=== PATIENT | male | born 1955 | race Caucasian/White ===

== ENCOUNTER 2016-11-01 08:25 | Inpatient (IN) | payer BC, OTHER ==
[~2016-11-01] VITALS: Ht 177.8 cm; Wt 84.8 kg
[~2016-11-01 08:25] MED LIST: NXM/40 PO
[2016-11-01 09:17] LABS: HEMATOCRIT 44.4 % (42-52); MEAN CELL VOLUME 91.2 fL (80-100); MEAN CORPUSCULAR HEMOGLOBIN 31.4 pg (25-34); MEAN CORPUSCULAR HGB CONC 34.5 g/dl (32-36); MEAN PLATELET VOLUME 10.8 fL (7.4-10.4); PLATELET COUNT 201 K/uL (130-400); RED BLOOD COUNT 4.87 M/uL (4.7-6.1); WHITE BLOOD COUNT 6.12 K/uL (4.8-10.8)
[2016-11-01] MEDS ORDERED: ONDANSETRON INJ 2 MG/ML 2 ML VIAL ONE (09:19)
[2016-11-01] MEDS ORDERED: MoRPHine SULFATE 4 MG/ML 1 ML CARP\\VIAL IV STA ×2 (09:24→10:26)
[2016-11-01 09:28] LABS: ALT/SGPT 29 U/L (12-78); BLOOD UREA NITROGEN 17 mg/dl (7-18); BUN/CREATININE RATIO 13.4 (10-20); CARBON DIOXIDE 21 mmol/L (21-32); CHLORIDE 105 mmol/L (98-107); GLUCOSE 117 mg/dl (70-99); POTASSIUM 3.7 mmol/L (3.5-5.1); SODIUM 140 mmol/L (136-145)
[2016-11-01 09:33] LABS: ALB/GLOB RATIO 1.2 (0.9-2); ALKALINE PHOSPHATASE 69 U/L (45-117); AST/SGOT 24 U/L (15-37)
[2016-11-01 09:42] LABS: INR 0.9 (0.9-1.1); PARTIAL THROMBOPLASTIN RATIO 1.1; PROTHROMBIN TIME (PATIENT) 10.1 SECONDS (9.0-12.0)
[2016-11-01] MEDS ORDERED: NURSING VERBAL MED ORDER ONE (09:45)
[2016-11-01] MEDS ORDERED: ONDANSETRON INJ 2 MG/ML 2 ML VIAL IV STA (10:26)
--- NOTE | 2016-11-01 10:26 | DIAGNOSTIC IMAGING REPORT ---
PA CHEST RADIOGRAPH AND UPRIGHT AND SUPINE AP RADIOGRAPHS OF THE ABDOMEN CLINICAL HISTORY: Epigastric pain. COMPARISON STUDY: Chest radiograph abdominal series July 30, 2015. FINDINGS: Lung volumes are normal. Lungs are clear. There is no pneumothorax or pleural effusion. Cardiac size is normal. There is a moderate sized hiatal hernia. There is no free air. The bowel gas pattern is normal. Pelvic calcifications likely reflect phleboliths. Postsurgical findings within the proximal left humerus are noted. IMPRESSION: 1. No free air or evidence of bowel obstruction. 2. Moderate sized hiatal hernia. 3. No acute cardiopulmonary findings. Electronically signed by: Scot Childress M.D. 11/01/2016 10:25 AM Dictated Date/Time: 11/01/2016 10:22 AM
[2016-11-01] MEDS ORDERED: RANITIDINE HCL 50 MG/100 ML D5W IV STA (10:32)
[2016-11-01] MEDS ORDERED: OPTIRAY 320 IV PRN (11:15)
--- NOTE | 2016-11-01 11:35 | DIAGNOSTIC IMAGING REPORT ---
CT ABD/PELVIS IV CONTRAST ONLY CLINICAL HISTORY: Epigastric pain, nausea, vomiting. COMPARISON STUDY: None. TECHNIQUE: Following the IV administration of 116 mL of Optiray-320, CT scan of the abdomen and pelvis was performed from the lung bases to the proximal femurs. Images are reviewed in the axial, sagittal, and coronal planes. IV contrast was administered without complication. CT DOSE: 844.18 mGycm FINDINGS: Lower chest: There is bibasal atelectasis. There is a large hiatal hernia. Liver: The contrast-enhanced liver is normal in size, contour, and attenuation. There is no intrahepatic biliary ductal dilatation. The hepatic veins and portal veins are patent. Gallbladder: Mildly distended. No calculi are visualized. Spleen: Normal in size and attenuation. Pancreas: Unremarkable. Adrenal glands: Unremarkable. Kidneys: There is symmetric renal cortical enhancement. The kidneys are normal in size without hydronephrosis. Bowel: There are no transition zones indicate bowel obstruction. The appendix appears normal. There is colonic diverticulosis. There are no acute peridiverticular inflammatory changes. Peritoneum: There is no intraperitoneal free air or abdominal ascites. There are postsurgical changes of a left inguinal hernia repair. Vasculature: The abdominal aorta is normal in course and caliber. Adenopathy: None. Pelvic viscera: The bladder, and pelvic viscera are unremarkable. Skeletal structures: No destructive osseous lesions are seen. There is dural ectasia within the sacral spine with bony remodeling. IMPRESSION: 1. No evidence of bowel obstruction. No evidence of free air 2. Normal appendix 3. Diverticulosis. No evidence of acute peridiverticular inflammatory change 4. Large hiatal hernia 5. Mild gallbladder distention. No calculi are visualized. Electronically signed by: Jameson Lee M.D. 11/01/2016 11:33 AM Dictated Date/Time: 11/01/2016 11:30 AM
[2016-11-01] MEDS ORDERED: RANITIDINE IV 50 MG in DEXTROSE 5% 100ML 100 ML IV ONE (11:45)
--- NOTE | 2016-11-01 12:28 | EMERGENCY ROOM VISIT NOTE ---
History First contact with patient: 08:41 Chief Complaint: CHEST PAIN Stated Complaint: CHEST PAIN Nursing Triage Summary: Pt c/o chest pain in center of chest since 629, sudden onset. States he took tylenol, zantac and pepto-bismol. Pt c/o some nausea. Pain in center of chest tender to palpation. History of Present Illness Patient is a 61-year-old white male with past medical history significant for Cantor's esophagus and hiatal hernia who presents to the emergency department for evaluation of epigastric pain that started about 3 hours ago. He states that he was watching news and drinking his coffee at the time. He describes it as a steady, dull pain that he would've rated a 5/10. There was some associated numbness in the left arm. The pain subsided slightly on its own, but then worsened. He took Zantac, Pepto-Bismol and Tylenol without relief of his discomfort. He reports associated nausea, dry heaves, dizziness and chills. Since arrival in the emergency department the pain has increased again and he presently rates it a 9/10. He denies any radiation of the pain through to the back. He denies any upper chest pain. No palpitations or shortness of breath. He is actively vomiting during the history. The vomitus was clear and watery without blood. He has a history of Cantor's esophagus and is followed by Dr. Garvin. He has been off of his Nexium for 1-2 years. Review of Systems Review of systems as per HPI. All other systems reviewed were negative. 10 systems reviewed. Past Medical/Surgical History Medical Problems: (1) Cantor esophagus (2) Cantor's esophagus (3) Dyslipidemia (4) GERD (gastroesophageal reflux disease) (5) Hiatal hernia (6) Hiatal hernia (7) History of intestinal obstruction (8) Intractable nausea and vomiting Surgical Problems: (1) H/O inguinal hernia repair (2) History of inguinal hernia repair Electronic medical records are reviewed and summarized as above/below. See Problem List. Family History Diabetes mellitus Social History Smoking Status: Never Smoker Alcohol Use: none Marital Status: Occupation Status: employed Current/Historical Medications No Active Prescriptions or Reported Meds Allergies Coded Allergies: Omeprazole (Verified Adverse Reaction, Unknown, GI SYMPTOMS, 11/01/16) Physical Exam Vital Signs Date Time Temp Pulse Resp B/P Pulse Ox O2 Delivery O2 Flow Rate FiO2 11/01/16 12:45 96 Room Air 11/01/16 12:10 54 11/01/16 11:30 59 13 159/91 96 Room Air 11/01/16 10:22 52 19 170/100 99 Room Air 11/01/16 09:32 61 22 172/97 100 Room Air 11/01/16 09:25 98 Room Air 11/01/16 09:24 98 Room Air 11/01/16 09:24 98 Room Air 11/01/16 08:46 61 11/01/16 08:32 36.4 62 20 166/95 99 Room Air Physical Exam CONSTITUTIONAL: Patient is a diaphoretic, obviously uncomfortable 61-year-old white male who is awake and alert and in moderate distress due to nausea, vomiting and abdominal pain. EYES: Pupils equal, round, reactive to light and accommodation. EOMs intact without nystagmus. Sclera are anicteric. ENT: Tympanic membranes intact, with normal landmarks. External canals are clear. Oral and nasopharynx are clear. Mucous membranes are moist, no lesions , tongue and gums appear normal. NECK: No bruits auscultated. Supple without lymphadenopathy. No thyromegaly. No meningeal signs. Full active range of motion without discomfort. CARDIOVASCULAR: Regular rate and rhythm, with normal S1 and S2, no murmur or gallop or rub is heard. No carotid bruits auscultated. No JVD. Peripheral pulses easy to palpable. RESPIRATORY: Breath sounds equal and clear to auscultation without wheezes, rales, or rhonchi heard. Full and equal chest expansion without accessory muscle use or retractions. GI: Bowel sounds are present. Abdomen is soft and nondistended. Nontender to percussion throughout the lower abdomen, tenderness to percussion and even light palpation in the epigastric region with voluntary guarding. No organomegaly. No pulsatile masses. No rigidity or rebound tenderness. MUSCULOSKELETAL: Full range of motion of extremities x 4 with good strength. No cyanosis, edema, joint tenderness or swelling. No deformity. INTEGUMENTARY: No lesions or rash, normal skin turgor. NEUROLOGICAL: Alert, oriented, and cooperative. Cranial nerves, sensation and strength grossly intact. Pupils round, equal, and react to light, EOMs are full. LYMPH: No lymphadenopathy. Medical Decision & Procedures ER Provider Diagnostic Interpretation: PA CHEST RADIOGRAPH AND UPRIGHT AND SUPINE AP RADIOGRAPHS OF THE ABDOMEN CLINICAL HISTORY: Epigastric pain. COMPARISON STUDY: Chest radiograph abdominal series July 30, 2015. FINDINGS: Lung volumes are normal. Lungs are clear. There is no pneumothorax or pleural effusion. Cardiac size is normal. There is a moderate sized hiatal hernia. There is no free air. The bowel gas pattern is normal. Pelvic calcifications likely reflect phleboliths. Postsurgical findings within the proximal left humerus are noted. IMPRESSION: 1. No free air or evidence of bowel obstruction. 2. Moderate sized hiatal hernia. 3. No acute cardiopulmonary findings. CT ABD/PELVIS IV CONTRAST ONLY CLINICAL HISTORY: Epigastric pain, nausea, vomiting. COMPARISON STUDY: None. TECHNIQUE: Following the IV administration of 116 mL of Optiray-320, CT scan of the abdomen and pelvis was performed from the lung bases to the proximal femurs. Images are reviewed in the axial, sagittal, and coronal planes. IV contrast was administered without complication. CT DOSE: 844.18 mGycm FINDINGS: Lower chest: There is bibasal atelectasis. There is a large hiatal hernia. Liver: The contrast-enhanced liver is normal in size, contour, and attenuation. There is no intrahepatic biliary ductal dilatation. The hepatic veins and portal veins are patent. Gallbladder: Mildly distended. No calculi are visualized. Spleen: Normal in size and attenuation. Pancreas: Unremarkable. Adrenal glands: Unremarkable. Kidneys: There is symmetric renal cortical enhancement. The kidneys are normal in size without hydronephrosis. Bowel: There are no transition zones indicate bowel obstruction. The appendix appears normal. There is colonic diverticulosis. There are no acute peridiverticular inflammatory changes. Peritoneum: There is no intraperitoneal free air or abdominal ascites. There are postsurgical changes of a left inguinal hernia repair. Vasculature: The abdominal aorta is normal in course and caliber. Adenopathy: None. Pelvic viscera: The bladder, and pelvic viscera are unremarkable. Skeletal structures: No destructive osseous lesions are seen. There is dural ectasia within the sacral spine with bony remodeling. IMPRESSION: 1. No evidence of bowel obstruction. No evidence of free air 2. Normal appendix 3. Diverticulosis. No evidence of acute peridiverticular inflammatory change 4. Large hiatal hernia 5. Mild gallbladder distention. No calculi are visualized. Laboratory Results 11/01/16 08:45 5/1/17 08:45 Test 11/01/16 08:45 11/01/16 09:17 Red Blood Count 4.87 M/uL (4.7-6.1) Mean Corpuscular Volume 91.2 fL (80-100) Mean Corpuscular Hemoglobin 31.4 pg (25-34) Mean Corpuscular Hemoglobin Concent 34.5 g/dl (32-36) RDW Standard Deviation 44.6 fL (36.4-46.3) RDW Coefficient of Variation 13.6 % (11.5-14.5) Mean Platelet Volume 10.8 fL (7.4-10.4) Prothrombin Time 10.1 SECONDS (9.0-12.0) Prothromb Time International Ratio 0.9 (0.9-1.1) Activated Partial Thromboplast Time 28.1 SECONDS (21.0-31.0) Partial Thromboplastin Ratio 1.1 Anion Gap 14.0 mmol/L (3-11) Est Creatinine Clear Calc Drug Dose 61.6 ml/min Estimated GFR () 68.3 Estimated GFR (Non- 58.9 BUN/Creatinine Ratio 13.4 (10-20) Calcium Level 10.0 mg/dl (8.5-10.1) Magnesium Level 2.1 mg/dl (1.8-2.4) Total Bilirubin 0.4 mg/dl (0.2-1) Aspartate Amino Transf (AST/SGOT) 24 U/L (15-37) Alanine Aminotransferase (ALT/SGPT) 29 U/L (12-78) Alkaline Phosphatase 69 U/L (45-117) Total Creatine Kinase 107 U/L (39-308) Creatine Kinase MB < 0.5 ng/ml (0.5-3.6) Creatine Kinase MB Ratio (0-3.0) Total Protein 7.8 gm/dl (6.4-8.2) Albumin 4.3 gm/dl (3.4-5.0) Globulin 3.5 gm/dl (2.5-4.0) Albumin/Globulin Ratio 1.2 (0.9-2) Lipase 185 U/L (73-393) Hepatitis C Antibody Screen NEG (NEG) Bedside Troponin I 0.000 ng/ml (0-0.045) Medications Administered Medications (Trade) Dose Ordered Sig/Dylan Route Start Time Stop Time Status Last Admin Dose Admin Ondansetron HCl (Zofran Inj) 4 mg STK-MED ONCE .ROUTE 11/01/16 09:19 11/01/16 09:20 DC 11/01/16 09:27 4 MG Morphine Sulfate (MoRPHine SULFATE INJ) 4 mg NOW STAT IV 11/01/16 09:24 11/01/16 09:25 DC 11/01/16 09:29 4 MG Miscellaneous Information (Nursing Verbal Med Order) 1 ea ONE ONCE N/A 11/01/16 09:45 11/01/16 09:46 DC 11/01/16 09:45 1 EA Ondansetron HCl (Zofran Inj) 4 mg NOW STAT IV 11/01/16 10:26 11/01/16 10:27 DC 11/01/16 10:32 4 MG Morphine Sulfate 4 mg 4 mg NOW STAT IV 11/01/16 10:26 11/01/16 10:27 DC 11/01/16 10:32 4 MG Ranitidine HCl 50 mg/Dextrose 102 ml @ 204 mls/hr ONE ONCE IV 11/01/16 11:45 11/01/16 12:14 DC 11/01/16 11:51 204 MLS/HR Acetaminophen/ Empty Bag (Ofirmev Iv/ Empty Iv Bag 100ml) 100 ml @ 400 mls/hr NOW ONCE IV 11/01/16 12:45 11/01/16 12:59 DC 11/01/16 13:30 400 MLS/HR ECG Indication: abdominal pain Rate (beats per minute): 60 Rhythm: normal sinus Findings: no acute ischemic change, no ectopy Change: EKG #2 sinus bradycardia at 59 beats per minute, no ectopy or acute ischemic changes and no change from prior EKG performed today. ED Course The patient was seen and evaluated as above. His old records were reviewed. IV access obtained, EKG was performed and the patient was placed on a bus driver/monitor. Laboratory studies were elected including CBC with differential, CMP, coags, lipase, cardiac enzymes and [id number] troponin. Acute abdominal series was obtained. The patient was medicated with morphine 4 mg IV and Zofran 4 mg IV. Patient's laboratory studies revealed a normal white count of 6100, H&H 16 and 44, electrolytes are without significant abnormality. Renal function is normal. Liver functions and lipase are not elevated. CK and CK-MB are normal and 0 and 90 minute troponins are negative. 2 EKGs were performed, with no evidence for acute ischemic changes. Acute abdominal series was obtained and was negative for free air or bowel obstruction. There is no acute cardiopulmonary findings. Moderate hiatal hernia was noted. The patient reported increased pain and was given an additional dose of morphine 4 mg and Zofran 4 mg IV. He was also given Zantac 2 mg IV. Given the persistent pain, CT scan of the abdomen and pelvis with IV contrast was ordered. Biliary pathology was entertained, despite negative LFTs and lipase, however it was not felt that the patient would be able to tolerate a gallbladder ultrasound. CT scan showed no evidence for bowel obstruction, or free air. Appendix was visualized and was normal. Diverticulosis without evidence for acute diverticulitis was noted. Large hiatal hernia was noted. Mild gallbladder distention without evidence for cholelithiasis. The patient continued to complain of discomfort when he returned from CT. He was reluctant to use any additional narcotics as he had problems with constipation after using narcotics after his hernia repair. Medication regimen was reviewed with the patient and his who is a nurse, and they were agreeable to IV acetaminophen. He was ordered 1000 mg IV. All laboratory and diagnostic imaging studies were reviewed with the COSTA Anguiano with the GI service. She was in agreement that the patient may benefit from further care and evaluation in the hospital, and potentially for EGD tomorrow. [facility] and [facility]. Please refer to the admitting H&P for further information. Differential diagnosis includes esophagitis, gastritis, PUD, GERD, bowel obstruction, perforation, pancreatitis, acute cholecystitis, cholelithiasis, ascending cholangitis, ACS, aortic emergency, among others. Medical Decision See ED Course. Impression Primary Impression: Epigastric abdominal pain Additional Impression: Nausea & vomiting Departure Information Dispostion Being Evaluated By Hospitalist Prescriptions No Active Prescriptions or Reported Meds Referrals Fadi Parra M.D. (PCP) Patient Instructions [facility] Problem Qualifiers
[2016-11-01 12:45] VITALS: O2SAT 96; Ht 177.8 cm; Wt 84.8 kg
[2016-11-01] MEDS ORDERED: ACETAMINOPHEN IV 1,000 MG in EMPTY BAG 0 ML IV ONE (12:45)
[2016-11-01] MEDS ORDERED: MoRPHine SULFATE 4 MG/ML 1 ML CARP\\VIAL IV PRN (13:15)
[2016-11-01] MEDS ORDERED: ONDANSETRON INJ 2 MG/ML 2 ML VIAL IV PRN (13:15)
[2016-11-01] MEDS ORDERED: PROMETHAZINE HCL INJ 25 MG in SODIUM CHLORIDE 0.9% 50ML 50 ML IV PRN (13:30)
[2016-11-01] MEDS: SODIUM CHLORIDE 0.9% 1000ML 1,000 ML IV SCH (14:15)
[2016-11-01 14:22] VITALS: BP 153/88; PULSE 56; TEMP 36.5; O2SAT 99
[2016-11-01] MEDS ORDERED: IV FLUIDS COMPLETED PRN (14:30)
--- NOTE | 2016-11-01 15:13 | History and Physical ---
History & Physical Date & Time of Service: November 01, 2016 at 13:18 Chief Complaint: Chest Pain Primary Care Physician: Fadi Parra M.D. History of Present Illness Source: patient This is a 61 y/o male with PMHx of Cantor's Esophagus and Hiatal hernia who presents to the ED c/o epigastric abdominal pain that began this morning. Pt reports that he was sitting on the couch drinking his morning coffee when he developed abdominal pain that he describes as 9/10 constant "sharp/burning" epigastric pain that does not radiate anywhere. Sxs are assoc with N/V and dizziness. He tried taking Zantac, Tylenol and Pepto-Bismol at home with no relief. Pt has not had anything to eat today. mentions they were camping in [place] last week but they drank bottles water. Pt has a history of Cantor' s esophagus and hiatal hernia. Last EGD from 2013+ Y[facility]. He follows with GI , Dr. Garvin. Pt denies fever/chills, diaphoresis, chest pain, SOB, hematemesis, melena, hematochezia, constipation, diarrhea, bladder issues, LE edema, calf pain, lightheadedness/dizziness. In the ED, vitals are stable. Pt is afebrile with no leukocytosis. LFTs and lipase WNL. CT abd/pelvis negative for acute pathology. Pt will be admitted for further evaluation and treatment. Past Medical/Surgical History Medical Problems: (1) Cantor esophagus Status: Chronic (2) Cantor's esophagus Status: Chronic (3) Dyslipidemia Status: Chronic (4) GERD (gastroesophageal reflux disease) Status: Chronic (5) Hiatal hernia Status: Chronic (6) Hiatal hernia Status: Chronic (7) History of intestinal obstruction Status: Resolved Surgical Problems: (1) H/O inguinal hernia repair Status: Resolved (2) History of inguinal hernia repair Status: Resolved Family History Diabetes mellitus Social History Smoking Status: Never Smoker Alcohol Use: none Drug Use: none Marital Status: Housing status: lives with family Occupational Status: employed Allergies Coded Allergies: Omeprazole (Verified Adverse Reaction, Unknown, GI SYMPTOMS, 11/01/16) Home Medications No Active Prescriptions or Reported Meds Review of Systems Constitutional: No chills, No fatigue, No fever, No sweats, No weakness Eyes: No worsening of vision ENT: No hearing loss Respiratory: No cough, No shortness of breath Cardiovascular: No chest pain, No claudication, No edema Abdomen: + nausea, + pain, + vomiting, No GI bleeding, No constipation, No diarrhea Musculoskeletal: No calf pain, No swelling Genitourinary - Male: No dysuria Neurologic: No weakness Psychiatric: No depression symptoms Endocrine: No fatigue Hematologic / Lymphatic: No abnormal bleeding/bruising Integumentary: No new/changing skin lesions Physical Exam Vital Signs Date Time Temp Pulse Resp B/P Pulse Ox O2 Delivery O2 Flow Rate FiO2 11/01/16 12:45 96 Room Air 11/01/16 12:10 54 11/01/16 11:30 59 13 159/91 96 Room Air 11/01/16 10:22 52 19 170/100 99 Room Air 11/01/16 09:32 61 22 172/97 100 Room Air 11/01/16 09:25 98 Room Air 11/01/16 09:24 98 Room Air 11/01/16 09:24 98 Room Air 11/01/16 08:46 61 11/01/16 08:32 36.4 62 20 166/95 99 Room Air General Appearance: WD/WN, no apparent distress, + pertinent finding (Pt is sitting up in bed with at bedside) Head: normocephalic, atraumatic Eyes: normal inspection ENT: hearing grossly normal Neck: supple Respiratory/Chest: chest non-tender, lungs clear, normal breath sounds, no respiratory distress Cardiovascular: regular rate, rhythm, no edema, no murmur Abdomen/GI: soft, + tenderness (exquisite epigastric tenderness) Back: normal inspection Extremities/Musculoskelatal: normal inspection, no calf tenderness, no pedal edema Neurologic/Psych: alert, normal mood/affect, oriented x 3 Skin: normal color, warm/dry Diagnostics Laboratory Results Results Past 24 Hours Test 11/01/16 08:45 11/01/16 09:17 11/01/16 12:59 11/01/16 13:02 Range/Units White Blood Count 6.12 4.8-10.8 K/uL Red Blood Count 4.87 4.7-6.1 M/uL Hemoglobin 15.3 14.0-18.0 g/dL Hematocrit 44.4 42-52 % Mean Corpuscular Volume 91.2 80-100 fL Mean Corpuscular Hemoglobin 31.4 25-34 pg Mean Corpuscular Hemoglobin Concent 34.5 32-36 g/dl RDW Standard Deviation 44.6 36.4-46.3 fL RDW Coefficient of Variation 13.6 11.5-14.5 % Platelet Count 201 130-400 K/uL Mean Platelet Volume 10.8 7.4-10.4 fL Prothrombin Time 10.1 9.0-12.0 SECONDS Prothromb Time International Ratio 0.9 0.9-1.1 Activated Partial Thromboplast Time 28.1 21.0-31.0 SECONDS Partial Thromboplastin Ratio 1.1 Sodium Level 140 136-145 mmol/L Potassium Level 3.7 3.5-5.1 mmol/L Chloride Level 105 98-107 mmol/L Carbon Dioxide Level 21 21-32 mmol/L Anion Gap 14.0 3-11 mmol/L Blood Urea Nitrogen 17 7-18 mg/dl Creatinine 1.30 0.60-1.40 mg/dl Est Creatinine Clear Calc Drug Dose 61.6 ml/min Estimated GFR () 68.3 Estimated GFR (Non- 58.9 BUN/Creatinine Ratio 13.4 10-20 Random Glucose 117 70-99 mg/dl Calcium Level 10.0 8.5-10.1 mg/dl Total Bilirubin 0.4 0.2-1 mg/dl Aspartate Amino Transf (AST/SGOT) 24 15-37 U/L Alanine Aminotransferase (ALT/SGPT) 29 12-78 U/L Alkaline Phosphatase 69 45-117 U/L Total Creatine Kinase 107 39-308 U/L Creatine Kinase MB < 0.5 0.5-3.6 ng/ml Creatine Kinase MB Ratio 0-3.0 Total Protein 7.8 6.4-8.2 gm/dl Albumin 4.3 3.4-5.0 gm/dl Globulin 3.5 2.5-4.0 gm/dl Albumin/Globulin Ratio 1.2 0.9-2 Lipase 185 73-393 U/L Bedside Troponin I 0.000 0-0.045 ng/ml Diagnostic Radiology CT ABD/PELVIS IMPRESSION: 1. No evidence of bowel obstruction. No evidence of free air 2. Normal appendix 3. Diverticulosis. No evidence of acute peridiverticular inflammatory change 4. Large hiatal hernia 5. Mild gallbladder distention. No calculi are visualized. ABD/PELVIS XRAY IMPRESSION: 1. No free air or evidence of bowel obstruction. 2. Moderate sized hiatal hernia. 3. No acute cardiopulmonary findings. EKG EKG: NSR at 60 bpm with no acute acute ischemic change; no change when compared to EKG from 06/12/15 Impression Assessment and Plan INTRACTABLE ABD PAIN AND N/V pt presented with epigastric abd pain assoc with N/V; h/o Barretts esophagus and hiatal hernia -admit observation status to med/surg -pt is afebrile with no leukocytosis -LFTs and lipase WNL -CT abd/pelvis + mild gallbladder distention. No obstruction. Normal appendix. -start IVF, anti-emetics and pain meds -keep NPO except meds/sips of water -consult GI, Dr. Johnston-possible EGD tmrw -monitor DYSLIPIDEMIA -diet-controlled DVT PROPHYLAXIS -low VTE risk -SCDs CODE STATUS -FULL CODE status DISPO -Observation status until further workup is complete. Pt seen in collaboration with Dr. Faust. Please see her addendum for further details. Thanks! -Of note: patient will be followed by Dr. Szymanski starting tomorrow AM. I have seen, examined and discussed this patient with Radha Chowdary and I agree with the above note. Patient presented with sudden onset epigastric pain, nausea and vomiting. Vitals reviewed. PE: General- awake; alert; malaised appearing Eyes- EOMI; no scleral icterus Neck- no stridor; trachea midline Lungs- CTA bilaterally; no wheezes/crackles Heart- RRR; no m/r/g Abdomen- soft; exquisite epigastric tenderness; ND; nBS Back- no gross abnormalities Extremities- no c/c/e; no deformity Neuro- no focal deficits Skin- no appreciable rash or bruise Labs, imaging and EKG reviewed. Epigastric abdominal pain: Etiologies include ulcer, possibly related to hiatal hernia. Pancreatitis less likely given normal lipase and no abnormal findings on CT. Biliary etiology less likely given normal LFT's and only mildly distended gallbladder on CT; no ductal dilation. Conservative management at present with IVF's, and pain medication and nausea medication PRN. GI consulted and patient may have EGD tomorrow. Patient did have a small BM this morning and no e/o obstruction on imaging. Agree with remainder of plan as outlined above. Advanced Directives Existing Living Will: No Existing Power of Mechanist: No VTE Prophylaxis VTE Risk Assessment Done? Y/N: Yes Risk Level: Low
--- NOTE | 2016-11-01 15:47 | Gastrointestinal Consultation ---
Gastrointestinal Consultation Date of Consultation: November 01, 2016 Attending Physician: Dr. Parra Consulting Physician: Dr. Johnston Reason for Consultation: Epigastric pain History of Present Illness Patient is a 61 year old male patient of Dr. Parra with a hx of GERD/ Cantor's, large hiatal hernia who presented to the EGD this morning for epigastric pain. This pain began abruptly this morning when he was drinking coffee on an empty stomach. He describes the pain as severe and persistent so he was brought by family to the ED. He had episodes of emesis and dry heaves but no hematemesis. He denies lower abdomen pain, diarrhea or constipation and tells me that he had a BM yesterday that was soft, formed, w/o any blood.He carries a hx of Cantor's/GERD with dysplasia on in 2007 and 2010, short segment w/o dysplasia in 2013 with recommendation for repeat in 3 yrs which is later this year. He also previously had colonoscopy with diverticulosis, no polyps and is due for another screening later this year as well. On arrival, CBC was normal, CT with IV, no oral contrast did not show abnormalities. CMP was normal with the exception of an elevated anion gap at 14. Because he did not get relief with medication in the ED, he was admitted. He is seen and examined while he is resting in bed with his eyes closed, providing little eye contact but answers questions when asked. During the exam, he displayed voluntary guarding, telling me not to touch his epigastric area as I began to palpate. Past Medical/Surgical History Medical Problems: (1) Cantor's esophagus Status: Chronic (2) Epigastric abdominal pain Status: Acute (3) Hiatal hernia Status: Chronic Past Medical History: 1. Cantor's/GERD 2. Hepatitis A Past Surgical History: Endoscopy as mentioned in HPI. No hx of surgeries. Family History Diabetes mellitus Social History Smoking Status: Never Smoker Alcohol Use: none Drug Use: none Marital Status: Occupation Status: employed Allergies Coded Allergies: Omeprazole (Verified Adverse Reaction, Unknown, GI SYMPTOMS, 11/01/16) Current Medications Home Meds and Scripts Medications Dose Route/Sig Max Daily Dose Days Date Category No Active Prescriptions or Reported Medications Rx Review of Systems Constitutional: No chills, No fever, No sweats, No weakness, No weight loss Eyes: No eye pain, No redness ENT: No pain on swallowing, No sore throat, No trouble swallowing Respiratory: No cough, No dyspnea on exertion, No shortness of breath, No wheezing Cardiac: No chest pain, No edema, No palpitations Abdomen: + nausea, + pain, + see HPI, No GI bleeding, No constipation, No diarrhea, No dysphagia, No odynophagia, No vomiting Neuro: No balance problems, No memory loss, No numbness/tingling, No vertigo, No weakness Psych: No anxiety, No depression symptoms, No insomnia Heme: No abnormal bleeding/bruising, No night sweats Endo: No excessive thirst, No excessive urination Skin: No itch, No jaundice, No new/changing skin lesions, No rash Physical Exam Date Time Temp Pulse Resp B/P Pulse Ox O2 Delivery O2 Flow Rate FiO2 11/01/16 14:22 36.5 56 18 153/88 99 Room Air 11/01/16 14:05 52 16 151/86 97 11/01/16 13:31 52 16 151/86 97 Room Air 11/01/16 12:45 96 Room Air 11/01/16 12:10 54 11/01/16 11:30 59 13 159/91 96 Room Air 11/01/16 10:22 52 19 170/100 99 Room Air 11/01/16 09:32 61 22 172/97 100 Room Air 11/01/16 09:25 98 Room Air 11/01/16 09:24 98 Room Air 11/01/16 09:24 98 Room Air 11/01/16 08:46 61 11/01/16 08:32 36.4 62 20 166/95 99 Room Air General Appearance: no apparent distress Eyes: normal inspection, EOMI Neck: supple, no adenopathy, thyroid normal, no JVD Respiratory/Chest: chest non-tender, lungs clear, normal breath sounds, no accessory muscle use Cardiovascular: regular rate, rhythm, no JVD, no murmur Abdomen: normal bowel sounds, soft, no organomegaly, + tenderness (exquisitely tender over the epigastric area) Extremities: normal inspection, no pedal edema, normal capillary refill Neurologic/Psych: alert, normal mood/affect, oriented x 3 Skin: normal color, no jaundice, warm/dry, no rash Laboratory Results Last 24 Hours Test 11/01/16 08:45 5/1/17 09:17 White Blood Count 6.12 K/uL Red Blood Count 4.87 M/uL Hemoglobin 15.3 g/dL Hematocrit 44.4 % Mean Corpuscular Volume 91.2 fL Mean Corpuscular Hemoglobin 31.4 pg Mean Corpuscular Hemoglobin Concent 34.5 g/dl RDW Standard Deviation 44.6 fL RDW Coefficient of Variation 13.6 % Platelet Count 201 K/uL Mean Platelet Volume 10.8 fL Prothrombin Time 10.1 SECONDS Prothromb Time International Ratio 0.9 Activated Partial Thromboplast Time 28.1 SECONDS Partial Thromboplastin Ratio 1.1 Sodium Level 140 mmol/L Potassium Level 3.7 mmol/L Chloride Level 105 mmol/L Carbon Dioxide Level 21 mmol/L Anion Gap 14.0 mmol/L Blood Urea Nitrogen 17 mg/dl Creatinine 1.30 mg/dl Est Creatinine Clear Calc Drug Dose 61.6 ml/min Estimated GFR () 68.3 Estimated GFR (Non- 58.9 BUN/Creatinine Ratio 13.4 Random Glucose 117 mg/dl Calcium Level 10.0 mg/dl Magnesium Level 2.1 mg/dl Total Bilirubin 0.4 mg/dl Aspartate Amino Transf (AST/SGOT) 24 U/L Alanine Aminotransferase (ALT/SGPT) 29 U/L Alkaline Phosphatase 69 U/L Total Creatine Kinase 107 U/L Creatine Kinase MB < 0.5 ng/ml Creatine Kinase MB Ratio Total Protein 7.8 gm/dl Albumin 4.3 gm/dl Globulin 3.5 gm/dl Albumin/Globulin Ratio 1.2 Lipase 185 U/L Hepatitis C Antibody Screen NEG Bedside Troponin I 0.000 ng/ml Impression Patient is a 61 year old male with acute epigastric pain. Differentials considered are: gastritis, esophagitis, ulcer disease, gastric volvulus ( unlikely with normal CT imaging). Plan 1. NPO today. 2. Plan for EGD tomorrow by Dr. Johnston. I have seen , examined and agree with the plan as outlined by COSTA Cruz as above. -exam reveals soft abd -RUQ pain and epigastric -WBC count increased and bili up mildly, Ulcer is possibility, but if EGD negative then may need gallbladder evaluation
[2016-11-01] MEDS: RANITIDINE IV 50 MG in DEXTROSE 5% 100ML 100 ML IV SCH (19:55)
[2016-11-01] MEDS: DOCUSATE SODIUM 100 MG CAP PO SCH (19:56)
[2016-11-01 23:17] VITALS: BP 116/68; PULSE 102; TEMP 38.9; O2SAT 93
[2016-11-01] MEDS: ACETAMINOPHEN IV 650 MG in EMPTY BAG 0 ML IV PRN (23:53)
[2016-11-02] VITALS (11 sets, daily range): BP systolic 98–146; BP diastolic 60–85; PULSE 63–95; TEMP 36.6–38.3; O2SAT 93–96
[2016-11-02] MEDS: SODIUM CHLORIDE 0.9% 1000ML 1,000 ML IV SCH (02:45)
[2016-11-02] MEDS: RANITIDINE IV 50 MG in DEXTROSE 5% 100ML 100 ML IV SCH ×3 (04:16→20:45)
[2016-11-02] MEDS: DOCUSATE SODIUM 100 MG CAP PO SCH ×2 (07:36→20:46)
[2016-11-02] MEDS: ACETAMINOPHEN IV 650 MG in EMPTY BAG 0 ML IV PRN ×2 (07:36→19:03)
[2016-11-02 08:05] LABS: CALCIUM 8.3 mg/dl (8.5-10.1); CREATININE 1.2 mg/dl (0.60-1.40)
[2016-11-02 08:17] LABS: HEMATOCRIT 43.3 % (42-52); MEAN CELL VOLUME 93.7 fL (80-100); MEAN CORPUSCULAR HEMOGLOBIN 32.5 pg (25-34); MEAN CORPUSCULAR HGB CONC 34.6 g/dl (32-36); MEAN PLATELET VOLUME 10.9 fL (7.4-10.4); PLATELET COUNT 161 K/uL (130-400); RED BLOOD COUNT 4.62 M/uL (4.7-6.1); WHITE BLOOD COUNT 16.91 K/uL (4.8-10.8)
[2016-11-02] MEDS ORDERED: MoRPHine SULFATE 4 MG/ML 1 ML CARP\\VIAL IV PRN (09:15)
[2016-11-02] MEDS ORDERED: PROPOFOL IV EMULSION 10 MG/ML 20 ML VIAL IV ONE ×2 (09:37→14:51)
[2016-11-02] MEDS ORDERED: LIDOCAINE HCL 2% 2 ML VIAL (20MG/ML) ONE ×2 (09:37→14:51)
--- NOTE | 2016-11-02 10:27 | GI REPORT ---
Procedure Date: 11/02/2016 10:14 AM Procedure: Upper GI endoscopy Indications: Epigastric abdominal pain, Abdominal pain in the right upper quadrant Medicines: General Anesthesia Complications: No immediate complications. Estimated blood loss: None. Estimated Blood Loss: Estimated blood loss: none. Procedure: Pre-Anesthesia Assessment: - Pre-Anesthesia Assessment: - Prior to the procedure, a History and Physical was performed, and patient medications, allergies and sensitivities were reviewed. The patient's tolerance of previous anesthesia was reviewed. Please see [facility] for complete details. - The risks and benefits of the procedure and the sedation options and risks were discussed with the patient. All questions were answered and informed consent was obtained. - Patient identification and proposed procedure were verified prior to the procedure by the physician and the nurse. The procedure was verified in the pre-procedure area in the procedure room. After obtaining informed consent, the endoscope was passed carefully and meticuously under direct vision and only advanced when the lumen was clearly identified, C02 insuflation was utilized throughout the entirity of the procedure. Throughout the procedure, the patient's blood pressure, pulse, and oxygen saturations were monitored continuously. After obtaining informed consent, the endoscope was passed under direct vision. Throughout the procedure, the patient's blood pressure, pulse, and oxygen saturations were monitored continuously. The scope was introduced through the mouth, and advanced to the second part of duodenum. The upper GI endoscopy was accomplished without difficulty. The patient tolerated the procedure well. Findings: A large hiatus hernia was present. The Z-line was irregular. Biopsies were taken with a cold forceps for histology. Diffuse moderate inflammation characterized by congestion (edema) and erythema was found in the cardia, in the gastric fundus and in the gastric body. The area of inflammation was limited in the proximal stomach where the complicated hernia (both hiatal and mild component of paraesophageal). ? resolved gastric volvulus. The examined duodenum was normal. Impression: - Large hiatus hernia. - Z-line irregular. Biopsied. - Gastritis. - Normal examined duodenum. Recommendation: - Await pathology results. - [facility]. - Surgery consult for cholecystitis comment given pain that has now located to the RUQ and mild increase in WBC, total bilirubin, as well as fever. Gutierrez Johnston MD 11/02/2016 10:26:55 AM This report has been signed electronically. Note Initiated On: 11/02/2016 10:14 AM I attest to the content of the Intraoperative Record and orders documented therein, exceptions below
--- NOTE | 2016-11-02 11:09 | Anesthesiology Progress Note ---
Anesthesia Post Op Note Date & Time November 02, 2016 at 11:09 Vital Signs Pain Intensity: 8 Vital Signs Past 12 Hours Date Time Temp Pulse Resp B/P Pulse Ox O2 Delivery O2 Flow Rate FiO2 11/02/16 10:54 90 18 143/68 96 Room Air 11/02/16 10:39 85 20 126/82 96 Room Air 11/02/16 10:24 85 20 131/82 96 Room Air 11/02/16 10:00 37.1 86 20 145/82 95 Room Air 11/02/16 07:55 Room Air 11/02/16 07:13 37.7 95 16 137/85 94 Room Air 11/02/16 01:37 37.0 11/02/16 00:47 38.3 11/01/16 23:30 Room Air 11/01/16 23:17 38.9 102 18 116/68 93 Room Air Notes Mental Status: alert / awake / arousable, participated in evaluation Pt Amnestic to Procedure: Yes Nausea / Vomiting: adequately controlled Pain: adequately controlled Airway Patency, RR, SpO2: stable & adequate BP & HR: stable & adequate Hydration State: stable & adequate Anesthetic Complications: no major complications apparent
[2016-11-02] MEDS ORDERED: KETOROLAC TROMETHAMINE 15 MG/ML VIAL IV. SCH (12:15)
[2016-11-02] MEDS ORDERED: PIPERACILL/TAZOBAC IV 4.5 GM in DEXTROSE 5% 100ML 100 ML IV SCH ×2 (12:15→12:30)
[2016-11-02] MEDS ORDERED: PIPERACILL/TAZOBAC CONSULT ACTIVE PRN (12:30)
--- NOTE | 2016-11-02 12:34 | CONSULTATION REPORT ---
DATE OF CONSULTATION: 11/02/2016 REASON FOR THE CONSULT: Possible cholecystitis. HISTORY OF PRESENT ILLNESS: The patient is a 61-year-old male admitted to the hospital yesterday with what appeared to be severe epigastric pain and he did have a fever last evening with elevated white count. His initial study showed a hiatal hernia and also on CT scan, a distended gallbladder. His total bilirubin did elevate somewhat today, but his other transaminases and alkaline phosphatase are normal. He is not complaining of any epigastric or right upper quadrant pain or nausea at the present time. He apparently had had some nausea and vomiting. HIDA scan has been ordered; however, they cannot perform it a today because of his recent medications for his EGD. His EGD did show this morning severe gastritis with a question of gastric edema and possible resolved volvulus. FAMILY AND SOCIAL HISTORY: Noncontributory. ALLERGIES: HE HAS AN ALLERGY TO OMEPRAZOLE. REVIEW OF SYSTEMS: Please see his HPI for positive symptoms. He has no sweats, cough, shortness of breath, chest pain, diarrhea or constipation. No joint pain, dysuria, rash or extremity edema. PHYSICAL EXAMINATION: GENERAL: He is awake and responsive. He is in no distress. He is well nourished. HEENT: His head is atraumatic. Eyes, sclerae are normal. NECK: Supple. LUNGS: Show no evidence of respiratory distress. HEART: Regular rate and rhythm. ABDOMEN: Flat, soft, and nontender. He has no palpable mass or tenderness in the right upper quadrant. He has no rashes. SKIN: Warm and dry. EXTREMITIES: He has no pedal edema. As a note also, I did review his CAT scan. ASSESSMENT AND PLAN: A 61-year-old male admitted with severe epigastric pain, which has now resolved. He has no right upper quadrant pain. There is some concern for cholecystitis; however, it is somewhat atypical without significant findings of gallbladder distention and thickening to have fever and elevated white blood cell count secondary to cholecystitis. We will obtain an ultrasound to see if there are changes in the gallbladder and also HIDA scan has been ordered. Cultures have been ordered and we will check his urine. Again, I do not feel compelled to take the patient to the operating room for laparoscopic cholecystectomy and I am unsure that this is really the etiology.
--- NOTE | 2016-11-02 13:37 | Progress Note ---
Internal Med Progress Note Date of Service: November 02, 2016. Provider Documentation: SUBJECTIVE: The patient was seen and examined Complains of epigastric/RUQ pain and Also some pain lower abdomen No CP ,palpitation or SOB OBJECTIVE: Vital Signs-as noted below Exam: General-Minimal distress at rest Eyes-normal ENT-normal Neck-supple Lungs-Clear to ausucltate bilaterally Heart-regular,no murmur appreciated Abdomen-Soft,Mildly tender in Epigastrium and RUQ No guarding and or rigidity,no masses,bowel sound present Extremities-No edema Neuro-AAOx3 No focal neuro deficit Lab data as noted below. ASSESSMENT & PLAN: INTRACTABLE ABDOMINAL PAIN WITH N/V Pt presented with epigastric abd pain assoc with N/V; H/o Barretts esophagus and hiatal hernia Was afebrile with no leukocytosis on Admission -LFTs and lipase WNL -CT abd/pelvis + mild gallbladder distention. No obstruction. Normal appendix. -started on IVF, anti-emetics and pain meds -keep NPO except meds/sips of water -consult GI,-appreciate input -S/p EGD-mild Gastritis Fever with Leukocytosis More RUQ pain Needs to R/O Cholecystitis Surgery consulted -appreciate Input HIDA and Abd US DYSLIPIDEMIA -diet-controlled DVT PROPHYLAXIS -low VTE risk -SCDs CODE STATUS -FULL CODE status DISPO Awaited Vital Signs: Date Time Temp Pulse Resp B/P Pulse Ox O2 Delivery O2 Flow Rate FiO2 11/02/16 11:19 37.2 76 20 146/82 95 Room Air 11/02/16 10:54 90 18 143/68 96 Room Air 11/02/16 10:39 85 20 126/82 96 Room Air 11/02/16 10:24 85 20 131/82 96 Room Air 11/02/16 10:00 37.1 86 20 145/82 95 Room Air 11/02/16 07:55 Room Air 11/02/16 07:13 37.7 95 16 137/85 94 Room Air 11/02/16 01:37 37.0 11/02/16 00:47 38.3 11/01/16 23:30 Room Air 11/01/16 23:17 38.9 102 18 116/68 93 Room Air 11/01/16 15:35 Room Air 11/01/16 14:22 36.5 56 18 153/88 99 Room Air 11/01/16 14:05 52 16 151/86 97 11/01/16 13:31 52 16 151/86 97 Room Air Lab Results: Results Past 24 Hours Test 11/02/16 06:54 Range/Units White Blood Count 16.91 4.8-10.8 K/uL Red Blood Count 4.62 4.7-6.1 M/uL Hemoglobin 15.0 14.0-18.0 g/dL Hematocrit 43.3 42-52 % Mean Corpuscular Volume 93.7 80-100 fL Mean Corpuscular Hemoglobin 32.5 25-34 pg Mean Corpuscular Hemoglobin Concent 34.6 32-36 g/dl RDW Standard Deviation 48.7 36.4-46.3 fL RDW Coefficient of Variation 14.3 11.5-14.5 % Platelet Count 161 130-400 K/uL Mean Platelet Volume 10.9 7.4-10.4 fL Sodium Level 139 136-145 mmol/L Potassium Level 4.0 3.5-5.1 mmol/L Chloride Level 104 98-107 mmol/L Carbon Dioxide Level 26 21-32 mmol/L Anion Gap 9.0 3-11 mmol/L Blood Urea Nitrogen 18 7-18 mg/dl Creatinine 1.20 0.60-1.40 mg/dl Est Creatinine Clear Calc Drug Dose 66.7 ml/min Estimated GFR () 75.2 Estimated GFR (Non- 64.9 BUN/Creatinine Ratio 15.0 10-20 Random Glucose 130 70-99 mg/dl Calcium Level 8.3 8.5-10.1 mg/dl Total Bilirubin 1.1 0.2-1 mg/dl Aspartate Amino Transf (AST/SGOT) 18 15-37 U/L Alanine Aminotransferase (ALT/SGPT) 32 12-78 U/L Alkaline Phosphatase 51 45-117 U/L Total Protein 7.3 6.4-8.2 gm/dl Albumin 3.7 3.4-5.0 gm/dl Globulin 3.6 2.5-4.0 gm/dl Albumin/Globulin Ratio 1.0 0.9-2 Microbiology Results 11/02/16 Blood Culture, Received Pending 11/02/16 Blood Culture, Received Pending
--- NOTE | 2016-11-02 13:56 | DIAGNOSTIC IMAGING REPORT ---
ULTRASOUND RIGHT UPPER QUADRANT ABDOMEN CLINICAL HISTORY: Right upper quadrant abdominal pain. COMPARISON STUDY: Abdominal CT dated 11/01/2016. TECHNIQUE: Real-time, grayscale, and color flow sonography of the right upper quadrant of the abdomen was performed. Images are reviewed in the transverse and longitudinal planes. FINDINGS: Liver: The liver is normal in size and echotexture. There is no intrahepatic biliary ductal dilatation. The main portal vein is patent. Gallbladder: The gallbladder is distended. The gallbladder wall is mildly thickened measuring up to 3 mm. Mild gallbladder wall edema is observed. No shadowing gallstones are identified. There is no pericholecystic fluid. A sonographic Gamboa's sign is reportedly absent. The common bile duct measures up to 0.3 cm in diameter. Pancreas: Not well visualized due to overlying bowel gas. Right kidney: Survey images of the right kidney demonstrate cortical atrophy. There is no hydronephrosis. Ascites: None. IMPRESSION: 1. The gallbladder is distended and the gallbladder wall appears mildly thickened and edematous. No shadowing gallstones are identified and findings are equivocal for acute cholecystitis which is not excluded. Consider nuclear hepatobiliary scan for further assessment. 2. The pancreas was not visualized due to overlying bowel gas. Electronically signed by: Lio Mccallum M.D. 11/02/2016 1:55 PM Dictated Date/Time: 11/02/2016 1:52 PM
[2016-11-02 13:58] LABS: URINE APPEARANCE CLEAR (CLEAR); URINE BILIRUBIN NEG (NEG); URINE COLOR YELLOW; URINE NITRITE NEG (NEG); UROBILINOGEN NEG (NEG)
[2016-11-02 14:06] LABS: MANUAL MICROSCOPIC REQUIRED? NO; REVIEW REQ? NO
--- NOTE | 2016-11-02 14:50 | Surgery Progress Note ---
Surgery Progress Note Date of Service November 02, 2016. Subjective ultrasound shows thickened gallbladder , distended- c/w acute cholecystitis Objective Vital Signs: Date Time Temp Pulse Resp B/P Pulse Ox O2 Delivery O2 Flow Rate FiO2 11/02/16 11:19 37.2 76 20 146/82 95 Room Air 11/02/16 10:54 90 18 143/68 96 Room Air 11/02/16 10:39 85 20 126/82 96 Room Air 11/02/16 10:24 85 20 131/82 96 Room Air 11/02/16 10:00 37.1 86 20 145/82 95 Room Air 11/02/16 07:55 Room Air 11/02/16 07:13 37.7 95 16 137/85 94 Room Air 11/02/16 01:37 37.0 11/02/16 00:47 38.3 11/01/16 23:30 Room Air 11/01/16 23:17 38.9 102 18 116/68 93 Room Air 11/01/16 15:35 Room Air Laboratory Results: Results Past 24 Hours Test 11/02/16 06:54 11/02/16 13:25 Range/Units White Blood Count 16.91 4.8-10.8 K/uL Red Blood Count 4.62 4.7-6.1 M/uL Hemoglobin 15.0 14.0-18.0 g/dL Hematocrit 43.3 42-52 % Mean Corpuscular Volume 93.7 80-100 fL Mean Corpuscular Hemoglobin 32.5 25-34 pg Mean Corpuscular Hemoglobin Concent 34.6 32-36 g/dl RDW Standard Deviation 48.7 36.4-46.3 fL RDW Coefficient of Variation 14.3 11.5-14.5 % Platelet Count 161 130-400 K/uL Mean Platelet Volume 10.9 7.4-10.4 fL Sodium Level 139 136-145 mmol/L Potassium Level 4.0 3.5-5.1 mmol/L Chloride Level 104 98-107 mmol/L Carbon Dioxide Level 26 21-32 mmol/L Anion Gap 9.0 3-11 mmol/L Blood Urea Nitrogen 18 7-18 mg/dl Creatinine 1.20 0.60-1.40 mg/dl Est Creatinine Clear Calc Drug Dose 66.7 ml/min Estimated GFR () 75.2 Estimated GFR (Non- 64.9 BUN/Creatinine Ratio 15.0 10-20 Random Glucose 130 70-99 mg/dl Calcium Level 8.3 8.5-10.1 mg/dl Total Bilirubin 1.1 0.2-1 mg/dl Aspartate Amino Transf (AST/SGOT) 18 15-37 U/L Alanine Aminotransferase (ALT/SGPT) 32 12-78 U/L Alkaline Phosphatase 51 45-117 U/L Total Protein 7.3 6.4-8.2 gm/dl Albumin 3.7 3.4-5.0 gm/dl Globulin 3.6 2.5-4.0 gm/dl Albumin/Globulin Ratio 1.0 0.9-2 Urine Color YELLOW Urine Appearance CLEAR CLEAR Urine pH 7.0 4.5-7.5 Urine Specific Nunda 1.020 1.000-1.030 Urine Protein NEG NEG Urine Glucose (UA) NEG NEG Urine Ketones NEG NEG Urine Occult Blood NEG NEG Urine Nitrite NEG NEG Urine Bilirubin NEG NEG Urine Urobilinogen NEG NEG Urine Leukocyte Esterase NEG NEG Microbiology Results 11/02/16 Blood Culture, Received Pending 11/02/16 Blood Culture, Received Pending Assessment & Plan 11/02/16- evidence of acute cholecystitis- discussed lap cecilia with pt/ - they wish to proceed with lap cecilia, possible open operation, possible cholangiogram. Unsure if causing all sxs but do not think it is lewis to wait another day for Hida scan
[2016-11-02] MEDS ORDERED: MIDAZOLAM HCL 1 MG/ML 2ML VIAL ONE (14:51)
[2016-11-02] MEDS ORDERED: ROCURONIUM BROMIDE 10 MG/ML 5 ML VIAL ONE (14:51)
[2016-11-02] MEDS ORDERED: FENTANYL CITRATE INJ 50 MCG/1 ML 2 ML VIAL ONE ×2 (14:52→15:59)
[2016-11-02] MEDS ORDERED: ATROPINE SULFATE 0.1 MG/ML 5ML SYR IV PRN (15:15)
[2016-11-02] MEDS ORDERED: NALOXONE HCL 0.4 MG/1 ML VIAL/CARP IV PRN (15:15)
[2016-11-02] MEDS ORDERED: FLUMAZENIL 0.1 MG/1 ML 10 ML VIAL IV PRN (15:15)
[2016-11-02] MEDS ORDERED: PHENYLEPHRINE 100MCG/ML 5ML SYR IV PRN (15:15)
[2016-11-02] MEDS ORDERED: FENTANYL CITRATE INJ 50 MCG/1 ML 2 ML VIAL IV PRN (15:15)
[2016-11-02] MEDS ORDERED: ONDANSETRON INJ 2 MG/ML 2 ML VIAL IV PRN ×2 (15:15→16:30)
[2016-11-02] MEDS ORDERED: HYDROmorphone INJ 2 MG/ML SYR/VIAL IV PRN (15:15)
[2016-11-02] MEDS ORDERED: MEPERIDINE HCL 25 MG/ML CARP IV PRN (15:15)
[2016-11-02] MEDS ORDERED: EpHEDrine SULFATE INJ 50 MG/ML AMP IV PRN (15:15)
[2016-11-02] MEDS ORDERED: LABETALOL HCL IV 5 MG/ML 20ML IV PRN (15:15)
[2016-11-02] MEDS ORDERED: BUPIVACAINE 0.5 % 5 MG/1 ML MPF 30ML VIAL ONE (15:27)
[2016-11-02] MEDS ORDERED: CONRAY 60% 50 ML VIAL ONE (15:27)
[2016-11-02] MEDS ORDERED: NEOSTIGMINE METHYLSULFATE 5 MG/5 ML SYR ONE (15:49)
[2016-11-02] MEDS ORDERED: GLYCOPYRROLATE INJ 0.2 MG/ML VIAL ONE (15:49)
[2016-11-02] MEDS ORDERED: DEXAMETHASONE SOD INJ 4 MG/ML VIAL ONE (15:49)
[2016-11-02] MEDS ORDERED: ONDANSETRON INJ 2 MG/ML 2 ML VIAL ONE (15:49)
--- NOTE | 2016-11-02 16:22 | [facility] Post Operative Brief Note ---
Immediate Operative Summary Operative Date November 02, 2016. Pre-Operative Diagnosis Acute Cholecystitis Post-Operative Diagnosis Acute Cholecystitis, necrotizing cholecystitis Procedure(s) Performed laparoscopic cholecystectomy Surgeon Dr. Johnson Prep Room Supervisor Surgeon(s) Chadwick Deluca PA-C Estimated Blood Loss 15cc Findings severe inflammation with patchy necrosis Specimens A. Gallbladder Drains #[address] RAMESH Anesthesia gen Complication(s) None Disposition Recovery Room / PACU
[2016-11-02] MEDS ORDERED: PROMETHAZINE HCL INJ 25 MG in SODIUM CHLORIDE 0.9% 50ML 50 ML IV PRN (16:30)
[2016-11-02] MEDS ORDERED: HYDROCODONE/ACETAMOPHEN 5/325MG TAB PO PRN ×2 (16:30)
[2016-11-02] MEDS ORDERED: HYDROmorphone INJ 0.5 MG/0.5 ML SYR IV PRN (16:30)
[2016-11-02] MEDS ORDERED: HYDROmorphone INJ 1 MG/ML SYR IV PRN (16:30)
--- NOTE | 2016-11-02 16:48 | Anesthesiology Progress Note ---
Anesthesia Post Op Note Date & Time November 02, 2016 at 16:48 Vital Signs Pain Intensity: 0 Vital Signs Past 12 Hours Date Time Temp Pulse Resp B/P Pulse Ox O2 Delivery O2 Flow Rate FiO2 11/02/16 16:40 82 16 107/69 100 Mask 10 11/02/16 16:33 36.4 90 16 122/78 100 Mask 10 11/02/16 11:19 37.2 76 20 146/82 95 Room Air 11/02/16 10:54 90 18 143/68 96 Room Air 11/02/16 10:39 85 20 126/82 96 Room Air 11/02/16 10:24 85 20 131/82 96 Room Air 11/02/16 10:00 37.1 86 20 145/82 95 Room Air 11/02/16 07:55 Room Air 11/02/16 07:13 37.7 95 16 137/85 94 Room Air Notes Mental Status: alert / awake / arousable, participated in evaluation Pt Amnestic to Procedure: Yes Nausea / Vomiting: adequately controlled Pain: adequately controlled Airway Patency, RR, SpO2: stable & adequate BP & HR: stable & adequate Hydration State: stable & adequate Anesthetic Complications: no major complications apparent
--- NOTE | 2016-11-02 17:14 | OPERATIVE REPORT ---
DATE OF OPERATION: 11/02/2016 NAME OF OPERATION: Laparoscopic cholecystectomy. PREOPERATIVE DIAGNOSIS: Acute cholecystitis. POSTOPERATIVE DIAGNOSIS: Same with necrotizing cholecystitis. STAFF SURGEON: Weston Johnson MD CARGO SERVICE AGENT: MIKE Miles ANESTHESIA: General. DESCRIPTION OF PROCEDURE: The patient was brought in the operating room and placed on the operating table in supine position. His abdomen was prepped and draped in usual fashion. A 0.5% plain Marcaine was used to anesthetize all incisions. Incision was made just above the umbilicus, carrying dissection down to the fascia, placing a Veress needle producing pneumoperitoneum. An 11 mm port was placed at this level and then under visualization, three 5 mm ports were placed, 1 cephalad and 2 laterally. On inspection, the patient's omentum was adherent to the gallbladder. The gallbladder tip was severely inflamed showing patchy necrosis, all consistent with necrotizing cholecystitis. Gallbladder was aspirated of bile which appeared to be somewhat clotty and nonbilious, it was not quite clear. Dissection was carried out at the antonio hepatis, identifying the cystic duct and cystic artery. These were clipped and transected. The gallbladder then dissected away from the liver bed. It was severely edematous in the posterior wall showing diffuse patchy necrosis. Gallbladder was placed in an Endobag. After appropriate irrigation and hemostasis, a #15 round Juan F-Ballard drain was placed through the lateral 5 mm port site into the subhepatic space, and secured to the skin using 3-0 nylon suture. The 5 mm scope was then used to grasp the gallbladder in the Endobag through the umbilical site and then bring the bag and gallbladder out through the umbilical incision. All ports were removed. I did have to enlarge the skin and fascial incision because of the size of the gallbladder which was very large. The fascia was then reapproximated at the umbilicus using interrupted 0 PDS suture, subcutaneous tissue reapproximated using 2-0 plain catgut suture, and then the skin reapproximated using subcuticular 4-0 Monocryl and Dermabond. The patient was transferred to recovery room in stable condition. I attest to the content of the Intraoperative Record and any orders documented therein. Any exceptio ns are noted below.
[2016-11-02] MEDS ORDERED: PROMETHAZINE HCL INJ 12.5 MG in SODIUM CHLORIDE 0.9% 50ML 50 ML IV PRN (17:45)
[2016-11-02] MEDS ORDERED: LACTATED RINGER'S 1000ML 1,000 ML IV SCH (18:30)
[2016-11-02] MEDS: PIPERACILL/TAZOBAC IV 3.375 GM in DEXTROSE 5% 100ML IV SCH (18:36)
[2016-11-02] MEDS: DOCUSATE SODIUM/SENNA 50/8.6MG TAB PO SCH (20:46)
[2016-11-03] MEDS: PIPERACILL/TAZOBAC IV 3.375 GM in DEXTROSE 5% 100ML IV SCH ×3 (01:52→18:14)
[2016-11-03 03:49] VITALS: BP 101/60; PULSE 58; TEMP 36.7; O2SAT 95
[2016-11-03] MEDS: RANITIDINE IV 50 MG in DEXTROSE 5% 100ML 100 ML IV SCH ×2 (03:51→12:05)
[2016-11-03 04:49] LABS: HEMATOCRIT 38.2 % (42-52); MEAN CELL VOLUME 93.4 fL (80-100); MEAN CORPUSCULAR HEMOGLOBIN 30.8 pg (25-34); MEAN PLATELET VOLUME 10.6 fL (7.4-10.4); PLATELET COUNT 155 K/uL (130-400); RED BLOOD COUNT 4.09 M/uL (4.7-6.1); WHITE BLOOD COUNT 13.61 K/uL (4.8-10.8)
[2016-11-03 05:10] LABS: BUN/CREATININE RATIO 12.5 (10-20); CALCIUM 8.3 mg/dl (8.5-10.1); CREATININE 1.3 mg/dl (0.60-1.40); POTASSIUM 4.5 mmol/L (3.5-5.1)
[2016-11-03 05:13] LABS: ALB/GLOB RATIO 0.9 (0.9-2)
[2016-11-03] MEDS ORDERED: AMOX875T PO (05:34)
[2016-11-03] MEDS ORDERED: HYDR-5688 PO (05:34)
--- NOTE | 2016-11-03 06:01 | Surgery Progress Note ---
Surgery Progress Note Date of Service November 03, 2016. Subjective + feeling well, No nausea, No vomiting alert, looks much better afeb, vss Objective Vital Signs: Date Time Temp Pulse Resp B/P Pulse Ox O2 Delivery O2 Flow Rate FiO2 11/03/16 03:49 36.7 58 16 101/60 95 Room Air 11/02/16 23:30 Room Air 11/02/16 22:56 36.6 63 16 98/60 93 Room Air 11/02/16 20:34 36.6 78 17 116/74 94 Room Air 11/02/16 19:13 36.9 74 20 112/68 95 Nasal Cannula 2.0 11/02/16 18:41 36.6 78 20 111/71 96 Nasal Cannula 2.0 11/02/16 18:30 79 16 106/69 11/02/16 17:54 36.6 75 16 119/77 95 Nasal Cannula 2.0 11/02/16 17:30 95 Nasal Cannula 2.0 11/02/16 17:20 Nasal Cannula 2.0 11/02/16 17:10 36.5 77 16 100/63 95 Nasal Cannula 2 11/02/16 17:00 80 16 111/63 94 Nasal Cannula 2 11/02/16 16:50 88 17 102/63 100 Mask 10 11/02/16 16:40 82 16 107/69 100 Mask 10 11/02/16 16:33 36.4 90 16 122/78 100 Mask 10 11/02/16 11:19 37.2 76 20 146/82 95 Room Air 11/02/16 10:54 90 18 143/68 96 Room Air 11/02/16 10:39 85 20 126/82 96 Room Air 11/02/16 10:24 85 20 131/82 96 Room Air 11/02/16 10:00 37.1 86 20 145/82 95 Room Air 11/02/16 07:55 Room Air 11/02/16 07:13 37.7 95 16 137/85 94 Room Air General Appearance: no apparent distress Respiratory/Chest: no respiratory distress Abdomen: soft Incision(s): drainage (Drain in place) Laboratory Results: Results Past 24 Hours Test 11/02/16 06:54 11/02/16 13:25 11/02/16 20:30 11/03/16 04:40 Range/Units White Blood Count 16.91 13.61 4.8-10.8 K/uL Red Blood Count 4.62 4.09 4.7-6.1 M/uL Hemoglobin 15.0 12.6 14.0-18.0 g/dL Hematocrit 43.3 38.2 42-52 % Mean Corpuscular Volume 93.7 93.4 80-100 fL Mean Corpuscular Hemoglobin 32.5 30.8 25-34 pg Mean Corpuscular Hemoglobin Concent 34.6 33.0 32-36 g/dl RDW Standard Deviation 48.7 48.3 36.4-46.3 fL RDW Coefficient of Variation 14.3 14.0 11.5-14.5 % Platelet Count 161 155 130-400 K/uL Mean Platelet Volume 10.9 10.6 7.4-10.4 fL Sodium Level 139 142 136-145 mmol/L Potassium Level 4.0 4.5 3.5-5.1 mmol/L Chloride Level 104 109 98-107 mmol/L Carbon Dioxide Level 26 28 21-32 mmol/L Anion Gap 9.0 5.0 3-11 mmol/L Blood Urea Nitrogen 18 16 7-18 mg/dl Creatinine 1.20 1.30 0.60-1.40 mg/dl Est Creatinine Clear Calc Drug Dose 66.7 61.6 ml/min Estimated GFR () 75.2 68.3 Estimated GFR (Non- 64.9 58.9 BUN/Creatinine Ratio 15.0 12.5 10-20 Random Glucose 130 144 70-99 mg/dl Calcium Level 8.3 8.3 8.5-10.1 mg/dl Total Bilirubin 1.1 1.0 0.2-1 mg/dl Aspartate Amino Transf (AST/SGOT) 18 36 15-37 U/L Alanine Aminotransferase (ALT/SGPT) 32 48 12-78 U/L Alkaline Phosphatase 51 41 45-117 U/L Total Protein 7.3 6.3 6.4-8.2 gm/dl Albumin 3.7 2.9 3.4-5.0 gm/dl Globulin 3.6 3.4 2.5-4.0 gm/dl Albumin/Globulin Ratio 1.0 0.9 0.9-2 Urine Color YELLOW Urine Appearance CLEAR CLEAR Urine pH 7.0 4.5-7.5 Urine Specific [place] 1.020 1.000-1.030 Urine Protein NEG NEG Urine Glucose (UA) NEG NEG Urine Ketones NEG NEG Urine Occult Blood NEG NEG Urine Nitrite NEG NEG Urine Bilirubin NEG NEG Urine Urobilinogen NEG NEG Urine Leukocyte Esterase NEG NEG Direct Bilirubin 0.3 0-0.2 mg/dl Microbiology Results 11/02/16 Blood Culture, Received Pending 11/02/16 Blood Culture, Received Pending Assessment & Plan 11/03/16- s/p lap cecilia, pt had necrotizing cholecystitis- etiology of fever and N/V. looks and feels much better- wants to go home , but I think he needs one more day of IV atbx. Adv diet, leave/ home with drain 11/02/16- evidence of acute cholecystitis- discussed lap cecilia with pt/ - they wish to proceed with lap cecilia, possible open operation, possible cholangiogram. Unsure if causing all sxs but do not think it is lewis to wait another day for Hida scan 11/02/16- evidence of acute cholecystitis- discussed lap cecilia with pt/ - they wish to proceed with lap cecilia, possible open operation, possible cholangiogram. Unsure if causing all sxs but do not think it is lewis to wait another day for Hida scan
[2016-11-03 06:50] VITALS: BP 110/65; PULSE 69; TEMP 36.7; O2SAT 94
[2016-11-03] MEDS: DOCUSATE SODIUM 100 MG CAP PO SCH ×2 (08:32→20:26)
[2016-11-03] MEDS: DOCUSATE SODIUM/SENNA 50/8.6MG TAB PO SCH ×2 (08:32→20:25)
[2016-11-03] MEDS: MAGNESIUM HYDROXIDE SUSP 30 ML UDC PO SCH ×2 (08:34→20:29)
[2016-11-03] MEDS: HEPARIN SOD 5000 UNIT/0.5 ML CARP SQ SCH ×2 (08:59→20:26)
--- NOTE | 2016-11-03 10:41 | Gastroenterology Progress Note ---
Progress Note Date of Service: November 03, 2016 Subjective Pt evaluation today including: conversation w/ patient, conversation w/ family (), physical exam, chart review, lab review, review of studies, review of inpatient medication list Mr. Arreola is a 61 yr old male with hx of Cantor's/GERD who presented with epigastric pain, developing a fever, leukocytosis and pain changing to RUQ. Yesterday, EGD with gastritis, bx pending. He underwent cholecystectomy of a gangrenous gallbladder yesterday by Dr. Johnson Today the pt is feeling much better, sitting up in a chair with mild right mid abdomen tenderness, WBC improved to 13.6, no further fevers. Review of Systems Constitutional: + fever (resolved), + weakness (resolved) Respiratory: No cough Cardiac: No chest pain Abdomen: + pain, + see HPI, No GI bleeding, No constipation, No diarrhea, No nausea, No vomiting Male : No dysuria Neuro: No memory loss Psych: No depression symptoms Heme: No abnormal bleeding/bruising Endo: + fatigue (improved) Skin: No jaundice Medications Current Inpatient Medications Medications (Trade) Dose Ordered Sig/Dylan Route Start Time Stop Time Status Last Admin Dose Admin Ioversol 100 ml 100 ml UD PRN IV 11/01/16 11:15 11/05/16 11:14 Ranitidine HCl/ Dextrose (zANTac IV/D5 100ml) 102 ml @ 200 mls/hr Q8H IV 11/01/16 20:00 12/01/16 13:14 11/03/16 03:51 200 MLS/HR Docusate Sodium (coLACE CAP) 100 mg BID PO 11/01/16 21:00 12/01/16 20:59 11/03/16 08:32 100 MG Miscellaneous 1 ea 1 ea PRN PRN N/A 11/01/16 14:30 11/01/17 14:29 Acetaminophen/ Empty Bag (Ofirmev Iv/ Empty Iv Bag 100ml) 65 ml @ 260 mls/hr Q6H PRN IV 11/01/16 14:45 12/01/16 14:44 11/02/16 19:03 260 MLS/HR Piperacillin Sod/ Tazobactam Sod 1 ea 1 ea UD PRN N/A 11/02/16 12:30 12/02/16 12:29 Piperacillin Sod/ Tazobactam Sod/ Dextrose (Zosyn Iv/D5 100ml) 115 ml @ 28.75 mls/ hr Q8H IV 11/02/16 18:00 11/12/16 11:59 11/03/16 10:16 28.75 MLS/HR Hydromorphone HCl (Dilaudid Inj) FOR PAIN 0.5-1MG 0.5MG ... Q3H PRN IV 11/02/16 16:30 11/16/16 16:29 Magnesium Hydroxide 30 ml 30 ml BID PO 11/03/16 09:00 12/03/16 08:59 11/03/16 08:34 30 ML Promethazine HCl/ Sodium Chloride (Phenergan Inj/ Nss 50ml) 51 ml @ 204 mls/hr Q6H PRN IV 11/02/16 16:30 12/02/16 16:29 Senna/Docusate Sodium (Senokot S Tab) 1 tab BID PO 11/02/16 21:00 12/02/16 20:59 11/03/16 08:32 1 TAB Ondansetron HCl (Zofran Inj) 4 mg Q6H PRN IV 11/02/16 16:30 12/02/16 16:29 Acetaminophen/ Hydrocodone Bitart ([place] 5/325 Tab) 1 tab Q4 PRN PO 11/02/16 16:30 11/16/16 16:29 Acetaminophen/ Hydrocodone Bitart ([place] 5/325 Tab) 2 tab Q4 PRN PO 11/02/16 16:30 11/16/16 16:29 Heparin Sodium (Porcine) 5000 unit 5,000 unit Q12 SQ 11/03/16 09:00 12/03/16 08:59 Promethazine HCl/ Sodium Chloride (Phenergan Inj/ Nss 50ml) 50.5 ml @ 204 mls/hr Q6H PRN IV 11/02/16 17:45 12/02/16 17:44 Objective Vital Signs Date Time Temp Pulse Resp B/P Pulse Ox O2 Delivery O2 Flow Rate FiO2 11/03/16 07:40 Room Air 11/03/16 06:50 36.7 69 18 110/65 94 Room Air 11/03/16 03:49 36.7 58 16 101/60 95 Room Air 11/02/16 23:30 Room Air 11/02/16 22:56 36.6 63 16 98/60 93 Room Air 11/02/16 20:34 36.6 78 17 116/74 94 Room Air 11/02/16 19:13 36.9 74 20 112/68 95 Nasal Cannula 2.0 11/02/16 18:41 36.6 78 20 111/71 96 Nasal Cannula 2.0 11/02/16 18:30 79 16 106/69 11/02/16 17:54 36.6 75 16 119/77 95 Nasal Cannula 2.0 11/02/16 17:30 95 Nasal Cannula 2.0 11/02/16 17:20 Nasal Cannula 2.0 11/02/16 17:10 36.5 77 16 100/63 95 Nasal Cannula 2 11/02/16 17:00 80 16 111/63 94 Nasal Cannula 2 11/02/16 16:50 88 17 102/63 100 Mask 10 11/02/16 16:40 82 16 107/69 100 Mask 10 11/02/16 16:33 36.4 90 16 122/78 100 Mask 10 11/02/16 11:19 37.2 76 20 146/82 95 Room Air 11/02/16 10:54 90 18 143/68 96 Room Air 11/02/16 10:39 85 20 126/82 96 Room Air Physical Exam General Appearance: no apparent distress ENT: TMs normal, pharynx normal Neck: no adenopathy, thyroid normal, no JVD Respiratory/Chest: lungs clear, normal breath sounds Cardiovascular: regular rate, rhythm, no JVD, no murmur Abdomen: soft, + tenderness (in surgical areas, but no guarding) Extremities: no pedal edema Neurologic/Psych: alert, normal mood/affect, oriented x 3 Skin: no jaundice, warm/dry Laboratory Results Last 24 Hours Test 11/02/16 13:25 11/02/16 20:30 11/03/16 04:40 Urine Color YELLOW Urine Appearance CLEAR Urine pH 7.0 Urine Specific [place] 1.020 Urine Protein NEG Urine Glucose (UA) NEG Urine Ketones NEG Urine Occult Blood NEG Urine Nitrite NEG Urine Bilirubin NEG Urine Urobilinogen NEG Urine Leukocyte Esterase NEG White Blood Count 13.61 K/uL Red Blood Count 4.09 M/uL Hemoglobin 12.6 g/dL Hematocrit 38.2 % Mean Corpuscular Volume 93.4 fL Mean Corpuscular Hemoglobin 30.8 pg Mean Corpuscular Hemoglobin Concent 33.0 g/dl RDW Standard Deviation 48.3 fL RDW Coefficient of Variation 14.0 % Platelet Count 155 K/uL Mean Platelet Volume 10.6 fL Sodium Level 142 mmol/L Potassium Level 4.5 mmol/L Chloride Level 109 mmol/L Carbon Dioxide Level 28 mmol/L Anion Gap 5.0 mmol/L Blood Urea Nitrogen 16 mg/dl Creatinine 1.30 mg/dl Est Creatinine Clear Calc Drug Dose 61.6 ml/min Estimated GFR () 68.3 Estimated GFR (Non- 58.9 BUN/Creatinine Ratio 12.5 Random Glucose 144 mg/dl Calcium Level 8.3 mg/dl Total Bilirubin 1.0 mg/dl Direct Bilirubin 0.3 mg/dl Aspartate Amino Transf (AST/SGOT) 36 U/L Alanine Aminotransferase (ALT/SGPT) 48 U/L Alkaline Phosphatase 41 U/L Total Protein 6.3 gm/dl Albumin 2.9 gm/dl Globulin 3.4 gm/dl Albumin/Globulin Ratio 0.9 Assessment and Plan Mr. Arreola is a 61 yr old male post op day #1 from cholecystectomy for gangrenous gallbladder. Plan: 1. GI will review gastric and GE junction bx when available. 2. Diet, antibiotics per surgery. 3. GI will sign off. I have seen , examined and agree with the plan as outlined by COSTA Cruz as above. -exam reveals soft abd -much improved
--- NOTE | 2016-11-03 11:51 | Progress Note ---
Internal Med Progress Note Date of Service: November 03, 2016. Provider Documentation: SUBJECTIVE: The patient was seen and examined S/P Lap Cholecystectomy 11/02/16 Minimal abdominal discomfort OBJECTIVE: Vital Signs-as noted below Exam: General-no distress atb rest Eyes-normal ENT-normal Neck-supple Lungs-Clear to ausucltate bilaterally Heart-regular,no murmur appreciated Abdomen-Soft,Mildly tender in Epigastrium and RUQ No guarding and or rigidity,no masses,bowel sound present Extremities-No edema Neuro-AAOx3 No focal neuro deficit Lab data as noted below. ASSESSMENT & PLAN: Acute Cholecystitis Fever with Leukocytosis and US finding confirming Appreciate Surgery input S/P Lap Cholecystectomy 11/02 Doing much better after the surgery Advance diet as tolareted Likely home tomorrow INTRACTABLE ABDOMINAL PAIN WITH N/V Pt presented with epigastric abd pain assoc with N/V; H/o Barretts esophagus and hiatal hernia Was afebrile with no leukocytosis on Admission -LFTs and lipase WNL -CT abd/pelvis + mild gallbladder distention. No obstruction. Normal appendix. -started on IVF, anti-emetics and pain meds -keep NPO except meds/sips of water -consult GI,-appreciate input -S/p EGD-mild Gastritis -symptoms almost resolved DYSLIPIDEMIA -diet-controlled DVT PROPHYLAXIS -low VTE risk -SCDs CODE STATUS -FULL CODE status DISPO Likely home in AM Vital Signs: Date Time Temp Pulse Resp B/P Pulse Ox O2 Delivery O2 Flow Rate FiO2 11/03/16 07:40 Room Air 11/03/16 06:50 36.7 69 18 110/65 94 Room Air 11/03/16 03:49 36.7 58 16 101/60 95 Room Air 11/02/16 23:30 Room Air 11/02/16 22:56 36.6 63 16 98/60 93 Room Air 11/02/16 20:34 36.6 78 17 116/74 94 Room Air 11/02/16 19:13 36.9 74 20 112/68 95 Nasal Cannula 2.0 11/02/16 18:41 36.6 78 20 111/71 96 Nasal Cannula 2.0 11/02/16 18:30 79 16 106/69 11/02/16 17:54 36.6 75 16 119/77 95 Nasal Cannula 2.0 11/02/16 17:30 95 Nasal Cannula 2.0 11/02/16 17:20 Nasal Cannula 2.0 11/02/16 17:10 36.5 77 16 100/63 95 Nasal Cannula 2 11/02/16 17:00 80 16 111/63 94 Nasal Cannula 2 11/02/16 16:50 88 17 102/63 100 Mask 10 11/02/16 16:40 82 16 107/69 100 Mask 10 11/02/16 16:33 36.4 90 16 122/78 100 Mask 10 Lab Results: Results Past 24 Hours Test 11/02/16 13:25 11/02/16 20:30 11/03/16 04:40 Range/Units Urine Color YELLOW Urine Appearance CLEAR CLEAR Urine pH 7.0 4.5-7.5 Urine Specific [place] 1.020 1.000-1.030 Urine Protein NEG NEG Urine Glucose (UA) NEG NEG Urine Ketones NEG NEG Urine Occult Blood NEG NEG Urine Nitrite NEG NEG Urine Bilirubin NEG NEG Urine Urobilinogen NEG NEG Urine Leukocyte Esterase NEG NEG White Blood Count 13.61 4.8-10.8 K/uL Red Blood Count 4.09 4.7-6.1 M/uL Hemoglobin 12.6 14.0-18.0 g/dL Hematocrit 38.2 42-52 % Mean Corpuscular Volume 93.4 80-100 fL Mean Corpuscular Hemoglobin 30.8 25-34 pg Mean Corpuscular Hemoglobin Concent 33.0 32-36 g/dl RDW Standard Deviation 48.3 36.4-46.3 fL RDW Coefficient of Variation 14.0 11.5-14.5 % Platelet Count 155 130-400 K/uL Mean Platelet Volume 10.6 7.4-10.4 fL Sodium Level 142 136-145 mmol/L Potassium Level 4.5 3.5-5.1 mmol/L Chloride Level 109 98-107 mmol/L Carbon Dioxide Level 28 21-32 mmol/L Anion Gap 5.0 3-11 mmol/L Blood Urea Nitrogen 16 7-18 mg/dl Creatinine 1.30 0.60-1.40 mg/dl Est Creatinine Clear Calc Drug Dose 61.6 ml/min Estimated GFR () 68.3 Estimated GFR (Non- 58.9 BUN/Creatinine Ratio 12.5 10-20 Random Glucose 144 70-99 mg/dl Calcium Level 8.3 8.5-10.1 mg/dl Total Bilirubin 1.0 0.2-1 mg/dl Direct Bilirubin 0.3 0-0.2 mg/dl Aspartate Amino Transf (AST/SGOT) 36 15-37 U/L Alanine Aminotransferase (ALT/SGPT) 48 12-78 U/L Alkaline Phosphatase 41 45-117 U/L Total Protein 6.3 6.4-8.2 gm/dl Albumin 2.9 3.4-5.0 gm/dl Globulin 3.4 2.5-4.0 gm/dl Albumin/Globulin Ratio 0.9 0.9-2
--- NOTE | 2016-11-03 13:43 | Anesthesiology Progress Note ---
Anesthesia Post Op Note Date & Time November 03, 2016 at 13:42 Vital Signs Pain Intensity: 2.0 Vital Signs Past 12 Hours Date Time Temp Pulse Resp B/P Pulse Ox O2 Delivery O2 Flow Rate FiO2 11/03/16 07:40 Room Air 11/03/16 06:50 36.7 69 18 110/65 94 Room Air 11/03/16 03:49 36.7 58 16 101/60 95 Room Air Notes Mental Status: alert / awake / arousable, participated in evaluation Pt Amnestic to Procedure: Yes Nausea / Vomiting: adequately controlled Pain: adequately controlled Airway Patency, RR, SpO2: stable & adequate BP & HR: stable & adequate Hydration State: stable & adequate Anesthetic Complications: no major complications apparent
--- NOTE | 2016-11-03 15:05 | Pharmacy Progress Note ---
Automatic IV to PO Conversion Date of Service: November 03, 2016. [facility] has identified patient as an appropriate candidate for automatic intravenous to oral conversion. Eligible medication: Ranitidine 50 mg IV every 8 hours. Day # 3 of IV therapy. Subjective The patient is a 61 year old male admitted on November 02, 2016 at 23:40 for Intractable Nausea And Vomiting. Objective Vital Signs: Vital Signs Past 12 Hours Date Time Temp Pulse Resp B/P Pulse Ox O2 Delivery O2 Flow Rate FiO2 11/03/16 07:40 Room Air 11/03/16 06:50 36.7 69 18 110/65 94 Room Air 11/03/16 03:49 36.7 58 16 101/60 95 Room Air White Blood Count: Test 11/03/16 04:40 White Blood Count 13.61 K/uL (4.8-10.8) Height (Feet): 5 Height (Inches): 10.00 Weight (Kilograms): 84.800 Type of Diet: Regular Assessment & Plan The Infectious Disease Society and the [place] [employer] recommend conversion to oral therapy once a patient is determined to be clinically stable and are able to tolerate oral medications. Patient identified as appropriate candidate for IV to PO conversion of ranitidine based on the following criteria: * Receiving oral medications and/or tolerating oral diet for greater than 24 hours * Patient does not meet criteria for use of intravenous proton pump inhibitors ( negative for GI bleed, hypersecretory conditions, GERD associated with erosive esophagitis & unable to take PO) Automatic conversion to: Ranitidine 150 mg PO every 12 hours for GERD
[2016-11-03 15:35] VITALS: BP 114/72; PULSE 63; TEMP 36.7; O2SAT 94
[2016-11-03 16:00] VITALS: O2SAT 94
[2016-11-03] MEDS: RANITIDINE HCL 150 MG TAB PO SCH (20:26)
[2016-11-03 23:10] VITALS: BP 105/68; PULSE 58; TEMP 36.6; O2SAT 94
[2016-11-04] MEDS: PIPERACILL/TAZOBAC IV 3.375 GM in DEXTROSE 5% 100ML IV SCH ×2 (02:27→09:15)
--- NOTE | 2016-11-04 06:22 | Surgery Progress Note ---
Surgery Progress Note Date of Service November 04, 2016. Subjective + feeling well, No nausea, No vomiting tolerating diet afeb Objective Vital Signs: Date Time Temp Pulse Resp B/P Pulse Ox O2 Delivery O2 Flow Rate FiO2 11/03/16 23:20 Room Air 11/03/16 23:10 36.6 58 16 105/68 94 Room Air 11/03/16 16:00 94 Room Air 11/03/16 15:35 36.7 63 18 114/72 94 Room Air 11/03/16 07:40 Room Air 11/03/16 06:50 36.7 69 18 110/65 94 Room Air General Appearance: no apparent distress Respiratory/Chest: no respiratory distress Abdomen: soft Incision(s): intact (drain in place - minimal output) Laboratory Results: Results Past 24 Hours Test 11/04/16 04:44 Range/Units Assessment & Plan 11/04/16- much improved from admission. Plan d/c home today if ok with med team. Leave drain- to come in office early next week for removal. scripts for pain med and po atbx in chart 11/03/16- s/p lap cecilia, pt had necrotizing cholecystitis- etiology of fever and N/V. looks and feels much better- wants to go home , but I think he needs one more day of IV atbx. Adv diet, leave/ home with drain 11/02/16- evidence of acute cholecystitis- discussed lap cecilia with pt/ - they wish to proceed with lap cecilia, possible open operation, possible cholangiogram. Unsure if causing all sxs but do not think it is lewis to wait another day for Hida scan 11/03/16- s/p lap cecilia, pt had necrotizing cholecystitis- etiology of fever and N/V. looks and feels much better- wants to go home , but I think he needs one more day of IV atbx. Adv diet, leave/ home with drain 11/02/16- evidence of acute cholecystitis- discussed lap cecilia with pt/ - they wish to proceed with lap cecilia, possible open operation, possible cholangiogram. Unsure if causing all sxs but do not think it is lewis to wait another day for Hida scan
--- NOTE | 2016-11-04 06:27 | Discharge Instructions ---
Discharge Instructions Date of Service November 04, 2016. Admission Reason for Admission: Intractable Nausea And Vomiting Discharge Discharge Diagnosis / Problem: acute necrotizing cholecystitis Discharge Goals Goal(s): Decrease discomfort, Improve function, Improve disease control Activity Recommendations Activity Limitations: as noted below Lifting Limitations: no more than 25 pounds Exercise/Sports Limitations: until after follow-up appointment May Resume Sexual Activity: when tolerated Shower/Bathe: no limitations (may shower, no bath until drain/ sutures removed) Driving or Machine Use: resume 3 days after discharge SPECIAL CARE INSTRUCTIONS: * Cover incisions and change daily for comfort/drainage. * Empty drain 2-3 times per day and record. * May use ibuprofen for pain as tolerated. * Expect some swelling and bruising. Call your doctor if: * Temperature above 101 degrees * Pain not relieved by pain medicine ordered * There is increased drainage or redness from any incision * You have any unanswered questions or concerns [phone]. FOLLOW UP VISIT: If not already scheduled, please call the office for a follow-up visit. for 11/08- drain removal OFFICE PHONE NUMBER: Dr. Johnson Office . Current Hospital Diet Patient's current hospital diet: Regular Diet Discharge Diet Recommended Diet: Regular Diet Procedures Procedures Performed: Laparoscopic Cholecystectomy Pending Studies Studies pending at discharge: no Medical Emergencies . Who to Call and When: Medical Emergencies: If at any time you feel your situation is an emergency, please call 911 immediately. . Non-Emergent Contact Non-Emergency issues call your: Primary Care Provider, Surgeon . "Provider Documentation" section prepared by Weston Johnson. . VTE Core Measure Inpt VTE Proph given/why not?: Unfractionated heparin SQ, SCD's
[2016-11-04 06:53] VITALS: BP 113/76; PULSE 54; TEMP 36.6; O2SAT 96
[2016-11-04 07:02] LABS: HEMATOCRIT 40.7 % (42-52); MEAN CELL VOLUME 95.1 fL (80-100); MEAN CORPUSCULAR HEMOGLOBIN 31.8 pg (25-34); MEAN CORPUSCULAR HGB CONC 33.4 g/dl (32-36); MEAN PLATELET VOLUME 10.9 fL (7.4-10.4); PLATELET COUNT 180 K/uL (130-400); RED BLOOD COUNT 4.28 M/uL (4.7-6.1); WHITE BLOOD COUNT 11.48 K/uL (4.8-10.8)
[2016-11-04 07:32] LABS: BUN/CREATININE RATIO 17.1 (10-20); CALCIUM 8.8 mg/dl (8.5-10.1); CREATININE 1.3 mg/dl (0.60-1.40); POTASSIUM 3.7 mmol/L (3.5-5.1)
[2016-11-04 07:45] LABS: ALB/GLOB RATIO 0.9 (0.9-2)
[2016-11-04] MEDS: DOCUSATE SODIUM/SENNA 50/8.6MG TAB PO SCH (08:19)
[2016-11-04] MEDS: DOCUSATE SODIUM 100 MG CAP PO SCH (08:19)
[2016-11-04] MEDS: MAGNESIUM HYDROXIDE SUSP 30 ML UDC PO SCH (08:19)
[2016-11-04] MEDS: RANITIDINE HCL 150 MG TAB PO SCH (08:20)
[2016-11-04] MEDS: HEPARIN SOD 5000 UNIT/0.5 ML CARP SQ SCH (08:20)
--- NOTE | 2016-11-04 11:17 | Progress Note ---
Internal Med Progress Note Date of Service: November 04, 2016. Provider Documentation: SUBJECTIVE: The patient was seen and examined S/P Lap Cholecystectomy 11/02/16 Minimal abdominal discomfort Tolerating diet Ambulating well -no complaints OBJECTIVE: Vital Signs-as noted below Exam: General-no distress at rest Eyes-normal ENT-normal Neck-supple Lungs-Clear to ausucltate bilaterally Heart-regular,no murmur appreciated Abdomen-Soft,Mildly tender in Epigastrium and RUQ No guarding and or rigidity,no masses,bowel sound present Extremities-No edema Neuro-AAOx3 No focal neuro deficit Lab data as noted below. ASSESSMENT & PLAN: Acute Cholecystitis Fever with Leukocytosis and US finding confirming Appreciate Surgery input S/P Lap Cholecystectomy 11/02 Doing much better after the surgery Advance diet as tolerated Minimal Diarrhea -stool sent for C Diff Home this afternoon INTRACTABLE ABDOMINAL PAIN WITH N/V Pt presented with epigastric abd pain assoc with N/V; H/o Barretts esophagus and hiatal hernia Was afebrile with no leukocytosis on Admission -LFTs and lipase WNL -CT abd/pelvis + mild gallbladder distention. No obstruction. Normal appendix. -started on IVF, anti-emetics and pain meds -keep NPO except meds/sips of water -consult GI,-appreciate input -S/p EGD-mild Gastritis -symptoms resolved following cholecystectomy DYSLIPIDEMIA -diet-controlled DVT PROPHYLAXIS -low VTE risk -SCDs CODE STATUS -FULL CODE status DISPO Likely home this afternoon Vital Signs: Date Time Temp Pulse Resp B/P Pulse Ox O2 Delivery O2 Flow Rate FiO2 11/04/16 07:35 Room Air 11/04/16 06:53 36.6 54 18 113/76 96 Room Air 11/03/16 23:20 Room Air 11/03/16 23:10 36.6 58 16 105/68 94 Room Air 11/03/16 16:00 94 Room Air 11/03/16 15:35 36.7 63 18 114/72 94 Room Air Lab Results: Results Past 24 Hours Test 11/04/16 06:23 Range/Units White Blood Count 11.48 4.8-10.8 K/uL Red Blood Count 4.28 4.7-6.1 M/uL Hemoglobin 13.6 14.0-18.0 g/dL Hematocrit 40.7 42-52 % Mean Corpuscular Volume 95.1 80-100 fL Mean Corpuscular Hemoglobin 31.8 25-34 pg Mean Corpuscular Hemoglobin Concent 33.4 32-36 g/dl RDW Standard Deviation 49.4 36.4-46.3 fL RDW Coefficient of Variation 14.3 11.5-14.5 % Platelet Count 180 130-400 K/uL Mean Platelet Volume 10.9 7.4-10.4 fL Sodium Level 143 136-145 mmol/L Potassium Level 3.7 3.5-5.1 mmol/L Chloride Level 109 98-107 mmol/L Carbon Dioxide Level 28 21-32 mmol/L Anion Gap 6.0 3-11 mmol/L Blood Urea Nitrogen 22 7-18 mg/dl Creatinine 1.30 0.60-1.40 mg/dl Est Creatinine Clear Calc Drug Dose 61.6 ml/min Estimated GFR () 68.3 Estimated GFR (Non- 58.9 BUN/Creatinine Ratio 17.1 10-20 Random Glucose 100 70-99 mg/dl Calcium Level 8.8 8.5-10.1 mg/dl Total Bilirubin 0.7 0.2-1 mg/dl Aspartate Amino Transf (AST/SGOT) 31 15-37 U/L Alanine Aminotransferase (ALT/SGPT) 54 12-78 U/L Alkaline Phosphatase 51 45-117 U/L Total Protein 7.2 6.4-8.2 gm/dl Albumin 3.4 3.4-5.0 gm/dl Globulin 3.8 2.5-4.0 gm/dl Albumin/Globulin Ratio 0.9 0.9-2 Microbiology Results 11/04/16 C.difficile Toxin B Gene (PCR), Received Pending
[2016-11-04] MEDS ORDERED: AMOXICILLIN/CLAVULANATE TAB 875 MG TAB PO ONE (12:00)
[2016-11-04 13:08] VITALS: BP 113/76; PULSE 54; TEMP 36.6; O2SAT 96
--- NOTE | 2016-11-04 16:14 | Discharge Summary ---
Discharge Summary Date of Service November 04, 2016. Discharge Summary Admission Date: November 02, 2016 at 23:40 Discharge Date: November 04, 2016 Discharge Disposition: Home Principal Diagnosis: Acute Cholecystitis, S/P Lap Cholecystectomy Secondary Diagnoses/Problems: Please seeH&P and Hospital progress note Procedures: Lap Cholecystectomy Consultations: GI and Surgery Medication Reconciliation New Medications: Amoxicillin & Pot Clavulanate (Augmentin 875-125 mg) 1 Tab Tab 1 TAB PO BID, #14 TAB Hydrocodone/Acetaminophen 5MG/325MG ([place] 5MG/325MG) Tab 1-2 TABLET PO q 6 hrs PRN for Pain, #30 TAB PRN PAIN Admission Information HPI (per Admitting provider): This is a 61 y/o male with PMHx of Cantor's Esophagus and Hiatal hernia who presents to the ED c/o epigastric abdominal pain that began this morning. Pt reports that he was sitting on the couch drinking his morning coffee when he developed abdominal pain that he describes as 9/10 constant "sharp/burning" epigastric pain that does not radiate anywhere. Sxs are assoc with N/V and dizziness. He tried taking Zantac, Tylenol and Pepto-Bismol at home with no relief. Pt has not had anything to eat today. mentions they were camping in [place] last week but they drank bottles water. Pt has a history of Cantor' s esophagus and hiatal hernia. Last EGD from 2013+ [facility]. He follows with GI , Dr. Garvin. Pt denies fever/chills, diaphoresis, chest pain, SOB, hematemesis, melena, hematochezia, constipation, diarrhea, bladder issues, LE edema, calf pain, lightheadedness/dizziness. In the ED, vitals are stable. Pt is afebrile with no leukocytosis. LFTs and lipase WNL. CT abd/pelvis negative for acute pathology. Pt will be admitted for further evaluation and treatment. Past Medical/Surgical History Medical Problems: (1) Cantor esophagus Status: Chronic (2) Cantor's esophagus Status: Chronic (3) Dyslipidemia Status: Chronic (4) GERD (gastroesophageal reflux disease) Status: Chronic (5) Hiatal hernia Status: Chronic (6) Hiatal hernia Status: Chronic (7) History of intestinal obstruction Status: Resolved Surgical Problems: (1) H/O inguinal hernia repair Status: Resolved (2) History of inguinal hernia repair Status: Resolved Family History Diabetes mellitus Social History Smoking Status: Never Smoker Alcohol Use: none Drug Use: none Marital Status: Housing status: lives with family Occupational Status: employed Allergies Coded Allergies: Omeprazole (Verified Adverse Reaction, Unknown, GI SYMPTOMS, 11/01/16) Home Medications No Active Prescriptions or Reported Meds Review of Systems Constitutional: No chills, No fatigue, No fever, No sweats, No weakness Eyes: No worsening of vision ENT: No hearing loss Respiratory: No cough, No shortness of breath Cardiovascular: No chest pain, No claudication, No edema Abdomen: + nausea, + pain, + vomiting, No GI bleeding, No constipation, No diarrhea Musculoskeletal: No calf pain, No swelling Genitourinary - Male: No dysuria Neurologic: No weakness Psychiatric: No depression symptoms Endocrine: No fatigue Hematologic / Lymphatic: No abnormal bleeding/bruising Integumentary: No new/changing skin lesions Physical Ex - H&P Physical Exam Vital Signs Date Time Temp Pulse Resp B/P Pulse Ox O2 Delivery O2 Flow Rate FiO2 11/01/16 12:45 96 Room Air 11/01/16 12:10 54 11/01/16 11:30 59 13 159/91 96 Room Air 11/01/16 10:22 52 19 170/100 99 Room Air 11/01/16 09:32 61 22 172/97 100 Room Air 11/01/16 09:25 98 Room Air 11/01/16 09:24 98 Room Air 11/01/16 09:24 98 Room Air 11/01/16 08:46 61 11/01/16 08:32 36.4 62 20 166/95 99 Room Air General Appearance: WD/WN, no apparent distress, + pertinent finding (Pt is sitting up in bed with at bedside) Head: normocephalic, atraumatic Eyes: normal inspection ENT: hearing grossly normal Neck: supple Respiratory/Chest: chest non-tender, lungs clear, normal breath sounds, no respiratory distress Cardiovascular: regular rate, rhythm, no edema, no murmur Abdomen/GI: soft, + tenderness (exquisite epigastric tenderness) Back: normal inspection Extremities/Musculoskelatal: normal inspection, no calf tenderness, no pedal edema Neurologic/Psych: alert, normal mood/affect, oriented x 3 Skin: normal color, warm/dry Diagnostics - H&P Diagnostics Laboratory Results Results Past 24 Hours Test 11/01/16 08:45 11/01/16 09:17 11/01/16 12:59 11/01/16 13:02 Range/Units White Blood Count 6.12 4.8-10.8 K/uL Red Blood Count 4.87 4.7-6.1 M/uL Hemoglobin 15.3 14.0-18.0 g/dL Hematocrit 44.4 42-52 % Mean Corpuscular Volume 91.2 80-100 fL Mean Corpuscular Hemoglobin 31.4 25-34 pg Mean Corpuscular Hemoglobin Concent 34.5 32-36 g/dl RDW Standard Deviation 44.6 36.4-46.3 fL RDW Coefficient of Variation 13.6 11.5-14.5 % Platelet Count 201 130-400 K/uL Mean Platelet Volume 10.8 7.4-10.4 fL Prothrombin Time 10.1 9.0-12.0 SECONDS Prothromb Time International Ratio 0.9 0.9-1.1 Activated Partial Thromboplast Time 28.1 21.0-31.0 SECONDS Partial Thromboplastin Ratio 1.1 Sodium Level 140 136-145 mmol/L Potassium Level 3.7 3.5-5.1 mmol/L Chloride Level 105 98-107 mmol/L Carbon Dioxide Level 21 21-32 mmol/L Anion Gap 14.0 3-11 mmol/L Blood Urea Nitrogen 17 7-18 mg/dl Creatinine 1.30 0.60-1.40 mg/dl Est Creatinine Clear Calc Drug Dose 61.6 ml/min Estimated GFR () 68.3 Estimated GFR (Non- 58.9 BUN/Creatinine Ratio 13.4 10-20 Random Glucose 117 70-99 mg/dl Calcium Level 10.0 8.5-10.1 mg/dl Total Bilirubin 0.4 0.2-1 mg/dl Aspartate Amino Transf (AST/SGOT) 24 15-37 U/L Alanine Aminotransferase (ALT/SGPT) 29 12-78 U/L Alkaline Phosphatase 69 45-117 U/L Total Creatine Kinase 107 39-308 U/L Creatine Kinase MB < 0.5 0.5-3.6 ng/ml Creatine Kinase MB Ratio 0-3.0 Total Protein 7.8 6.4-8.2 gm/dl Albumin 4.3 3.4-5.0 gm/dl Globulin 3.5 2.5-4.0 gm/dl Albumin/Globulin Ratio 1.2 0.9-2 Lipase 185 73-393 U/L Bedside Troponin I 0.000 0-0.045 ng/ml Diagnostic Radiology CT ABD/PELVIS IMPRESSION: 1. No evidence of bowel obstruction. No evidence of free air 2. Normal appendix 3. Diverticulosis. No evidence of acute peridiverticular inflammatory change 4. Large hiatal hernia 5. Mild gallbladder distention. No calculi are visualized. ABD/PELVIS XRAY IMPRESSION: 1. No free air or evidence of bowel obstruction. 2. Moderate sized hiatal hernia. 3. No acute cardiopulmonary findings. EKG EKG: NSR at 60 bpm with no acute acute ischemic change; no change when compared to EKG from 06/12/15 Impression - H&P Impression Assessment and Plan INTRACTABLE ABD PAIN AND N/V pt presented with epigastric abd pain assoc with N/V; h/o Barretts esophagus and hiatal hernia -admit observation status to med/surg -pt is afebrile with no leukocytosis -LFTs and lipase WNL -CT abd/pelvis + mild gallbladder distention. No obstruction. Normal appendix. -start IVF, anti-emetics and pain meds -keep NPO except meds/sips of water -consult GI, Dr. Johnston-possible EGD tmrw -monitor DYSLIPIDEMIA -diet-controlled DVT PROPHYLAXIS -low VTE risk -SCDs CODE STATUS -FULL CODE status DISPO -Observation status until further workup is complete. Pt seen in collaboration with Dr. Faust. Please see her addendum for further details. Thanks! -Of note: patient will be followed by Dr. Szymanski starting tomorrow AM. I have seen, examined and discussed this patient with Radha Chowdary and I agree with the above note. Patient presented with sudden onset epigastric pain, nausea and vomiting. Vitals reviewed. PE: General- awake; alert; malaised appearing Eyes- EOMI; no scleral icterus Neck- no stridor; trachea midline Lungs- CTA bilaterally; no wheezes/crackles Heart- RRR; no m/r/g Abdomen- soft; exquisite epigastric tenderness; ND; nBS Back- no gross abnormalities Extremities- no c/c/e; no deformity Neuro- no focal deficits Skin- no appreciable rash or bruise Labs, imaging and EKG reviewed. Epigastric abdominal pain: Etiologies include ulcer, possibly related to hiatal hernia. Pancreatitis less likely given normal lipase and no abnormal findings on CT. Biliary etiology less likely given normal LFT's and only mildly distended gallbladder on CT; no ductal dilation. Conservative management at present with IVF's, and pain medication and nausea medication PRN. GI consulted and patient may have EGD tomorrow. Patient did have a small BM this morning and no e/o obstruction on imaging. Agree with remainder of plan as outlined above. Advanced Directives Existing Living Will: No Existing Power of Floor Manager: No VTE Prophylaxis VTE Risk Assessment Done? Y/N: Yes Risk Level: Low Physical Exam (per Admitting): General Appearance: WD/WN, no apparent distress, + pertinent finding (Pt is sitting up in bed with at bedside) Head: normocephalic, atraumatic Eyes: normal inspection ENT: hearing grossly normal Neck: supple Respiratory/Chest: chest non-tender, lungs clear, normal breath sounds, no respiratory distress Cardiovascular: regular rate, rhythm, no edema, no murmur Abdomen/GI: soft, + tenderness (exquisite epigastric tenderness) Back: normal inspection Extremities/Musculoskelatal: normal inspection, no calf tenderness, no pedal edema Neurologic/Psych: alert, normal mood/affect, oriented x 3 Skin: normal color, warm/dry Hospital Course Acute Cholecystitis Fever with Leukocytosis and US finding confirming Appreciate Surgery input S/P Lap Cholecystectomy 11/02 Doing much better after the surgery Advance diet as tolerated Minimal Diarrhea -stool sent for C Diff Home this afternoon INTRACTABLE ABDOMINAL PAIN WITH N/V Pt presented with epigastric abd pain assoc with N/V; H/o Barretts esophagus and hiatal hernia Was afebrile with no leukocytosis on Admission -LFTs and lipase WNL -CT abd/pelvis + mild gallbladder distention. No obstruction. Normal appendix. -started on IVF, anti-emetics and pain meds -keep NPO except meds/sips of water -consult GI,-appreciate input -S/p EGD-mild Gastritis -symptoms resolved following cholecystectomy DYSLIPIDEMIA -diet-controlled DVT PROPHYLAXIS -low VTE risk -SCDs CODE STATUS -FULL CODE status DISPO Likely home this afternoon Total time spent on discharge = 35 minutes This includes examination of the patient, discharge planning, medication reconciliation, and communication with other providers. Discharge Instructions Date of Service November 04, 2016. Admission Reason for Admission: Intractable Nausea And Vomiting Discharge Discharge Diagnosis / Problem: acute necrotizing cholecystitis Discharge Goals Goal(s): Decrease discomfort, Improve function, Improve disease control Activity Recommendations Activity Limitations: as noted below Lifting Limitations: no more than 25 pounds Exercise/Sports Limitations: until after follow-up appointment May Resume Sexual Activity: when tolerated Shower/Bathe: no limitations (may shower, no bath until drain/ sutures removed) Driving or Machine Use: resume 3 days after discharge SPECIAL CARE INSTRUCTIONS: * Cover incisions and change daily for comfort/drainage. * Empty drain 2-3 times per day and record. * May use ibuprofen for pain as tolerated. * Expect some swelling and bruising. Call your doctor if: * Temperature above 101 degrees * Pain not relieved by pain medicine ordered * There is increased drainage or redness from any incision * You have any unanswered questions or concerns [phone]. FOLLOW UP VISIT: If not already scheduled, please call the office for a follow-up visit. for 11/08- drain removal OFFICE PHONE NUMBER: Dr. Johnson Office . Current Hospital Diet Patient's current hospital diet: Regular Diet Discharge Diet Recommended Diet: Regular Diet Procedures Procedures Performed: Laparoscopic Cholecystectomy Pending Studies Studies pending at discharge: no Medical Emergencies . Who to Call and When: Medical Emergencies: If at any time you feel your situation is an emergency, please call 911 immediately. . Non-Emergent Contact Non-Emergency issues call your: Primary Care Provider, Surgeon . "Provider Documentation" section prepared by Weston Johnson. . VTE Core Measure Inpt VTE Proph given/why not?: Unfractionated heparin SQ, SCD's <Electronically signed by Weston Johnson M.D.> Signed: 11/04/16 0627 Signed: The status of this report is Signed * If report status is Draft, the document has not been finalized by the responsible provider. Addendum: 11/04/16 1120 Addendum: Bushra Szymanski M.D. on 11/04/16 @ 11:20 Discharge Inst - Addendum Addendum Notes: Appointment with Dr Parra on 11/09/16 at 10:45AM.Please keep appointment with the surgeon. Addendum Provider: Addendum Notes were documented by provider Bushra Szymanski. Additional Copies To Fadi Parra M.D.
== END 2016-11-04 15:25 | disposition home or self-care (01) | DRG 419 ==
LOC: ENRESERVDT → ENRESERVTM → C.EDB 08:26 → C.MSN 13:09 → OBSVTOIN 11-02 23:40
PROVIDERS: ADMIT Internal Medicine; ATTEND Internal Medicine
PROC: 0DB58ZX Excision of Esophagus, Via Natural or Artificial Opening Endoscopic, Diagnostic (ICD-10-PCS; 2016-11-02)
PROC: 0FT44ZZ Resection of Gallbladder, Percutaneous Endoscopic Approach (ICD-10-PCS; principal; 2016-11-02 09:54)
DX: K81.0 Acute cholecystitis (principal); K22.70 Barrett's esophagus without dysplasia; R10.13 Epigastric pain; K44.9 Diaphragmatic hernia without obstruction or gangrene; Z83.3 Family history of diabetes mellitus; E78.5 Hyperlipidemia, unspecified

== ENCOUNTER → 2016-11-22 | Outpatient (CLI) | payer BC, OTHER ==
[~2016-11-22] MED LIST changes: +HYDR-5688 PO; -NXM/40 PO
== END | disposition home or self-care (01) ==
LOC: C.LAB 10:45
PROVIDERS: ATTEND Family Medicine
DX: R19.7 Diarrhea, unspecified (principal); B96.89 Other specified bacterial agents as the cause of diseases classified elsewhere

== ENCOUNTER 2022-03-17 13:11 | Observation (INO) ==
[2022-03-17] MEDS ORDERED: SODIUM CHLORIDE 0.9% 1000ML 500 ML IV ONE (14:08)
[2022-03-17 15:31] LABS: Basophils # (auto) 0.04 K/uL (0-0.2); Basophils % (auto) 0.6 %; Eosinophils # (auto) 0.16 K/uL (0-0.50); Eosinophils % (auto) 2.5 %; Hematocrit (blood only) 42.4 % (40.1-51.0); Hemoglobin 14.7 g/dl (14.0-18.0); Immature Granulocytes # (auto) 0.02 K/uL (0.00-0.02); Immature Granulocytes % (auto) 0.3 %; Lymphocytes # (auto) 2.14 K/uL (1.2-3.4); Lymphocytes % (auto) 33.3 %; Mean Corpuscular Hemoglobin 31.6 pg (25.0-34.0); Mean Corpuscular Hgb Conc 34.7 g/dL (32.0-36.0); Mean Corpuscular Volume 91.2 fL (80.0-100.0); Mean Platelet Volume 11.1 fL (9.4-12.4); Monocytes # (auto) 0.61 K/uL (0.24-0.82); Monocytes % (auto) 9.5 %; Neutrophils # (auto) 3.45 K/uL (1.4-6.5); Neutrophils % (auto) 53.8 %; Platelet Count 211 K/uL (130-400); RDW Coefficient of Variation 12.9 % (11.5-14.5); RDW Standard Deviation 42.5 fL (36.4-46.3); Red Blood Count 4.65 M/uL (4.63-6.08); White Blood Count 6.42 K/ul (4.8-10.8)
--- NOTE | 2022-03-17 15:39 | XRay Report ---
XR chest 1V portable CLINICAL HISTORY: Chest Pain TECHNIQUE: Single frontal radiograph of the chest was obtained. Comparison: Comparison is made to chest radiograph 04/08/2018 FINDINGS: No lines and tubes are seen. The aorta is tortuous. The remainder of the cardiomediastinal silhouette is unremarkable. The lungs are clear. No evidence of pleural effusion or pneumothorax. A moderate hi atal hernia is seen. IMPRESSION: No acute chest disease. ACT 112: Negative or not required by law. Electronically signed by: Damian Yusuf M.D. 03/17/2022 3:38 PM
[2022-03-17 15:53] LABS: Albumin Globulin Ratio 1.6 (0.9-2); Albumin Level 4.6 gm/dl (3.4-5.0); BUN Creatinine Ratio 14.7 (10-20); Bilirubin,Total 0.5 mg/dl (0.2-1.0); Creatinine Clr Calc Pharmacy 51.8 ml/min; Est GFR (African American) 58.3 ml/min; Est GFR (Non-African American) 50.3 ml/min; Globulin 2.9 gm/dl (2.5-4.0); Magnesium 2.3 mg/dl (1.7-2.4); Potassium 4.2 mmol/L (3.5-5.1); Total Protein 7.5 gm/dl (6.0-8.3)
[2022-03-17 15:58] LABS: Troponin I High Sensitivity 3.2 pg/ml (0-20)
--- NOTE | 2022-03-17 16:08 | CT Scan Report ---
CT OF THE HEAD WITHOUT CONTRAST CLINICAL HISTORY: Dizziness. COMPARISON STUDY: No previous studies for comparison. CT DOSE: 537.48 mGy.cm TECHNIQUE: Helical axial images of the head were obtained without IV contrast. Automated exposure con trol was utilized for the study. A dose lowering technique was utilized adhering to the principles o f ALARA. FINDINGS: No acute intracranial hemorrhage, midline shift or mass effect is present. The ventricular system is unremarkable. The basal cisterns are patent. No extra-axial collections are present. There are no findings to suggest acute dural sinus thrombosis or acute territorial infarct. No significant calvarial abnormalities are present. Visualized portions of the sinuses and mastoid air cells are mavis ar. IMPRESSION: No acute intracranial findings. ACT 112: Negative or not required by law. Electronically signed by: Scot Childress M.D. 03/17/2022 4:06 PM
[2022-03-17] MEDS ORDERED: SODIUM CHLORIDE 0.9% 1000ML 1,000 ML IV ONE (16:51)
--- NOTE | 2022-03-17 17:10 | Cardiology Consultation ---
Date of Consultation March 17, 2022 Assessment & Plan (1) Dizziness: - Noncontrast CT of the brain unremarkable. CBC and chemistry panel unremarkable with a stable degree of renal insufficiency, creatinine 1.4. -Symptoms do not sound suggestive of orthostatic hypotension. -Would consider additional neurologic work-up, perhaps to include an MRI. (2) PVCs (premature ventricular contractions): - Patient's cardiac rhythm does not seem to explain his symptoms occurring at present. As noted, blood pressure stable. -Would recommend echocardiogram. Hold off on initiating beta-john therapy for the PVCs given current dizziness. History of Present Illness History of Present Illness Zane Arreola is a 67-year-old male seen in cardiology consultation per the request of Dr Galvan and Dr Dao for the evaluation of premature ventricular contractions and subjective symptoms of lightheadedness, dizziness, nauseousness. Patient describes intermittent symptoms that began approximately 4 days ago, 03/14/2022, was actually the day that he had the most pronounced symptoms. He feels even sitting in the stretcher in the emergency room at a 45 degree angle that there is some degree of feeling like the room is spinning at present. When he sat upright for me to listen to his lungs he noted feeling dizzy. He had been to see primary care, Dr. Dao, as an acute visit for the symptoms today. An EKG performed and reviewed independently revealed sinus rhythm in the 50s to 60s with frequent premature ventricular contractions in a pattern of ventricular bigeminy. The patient does not have any past history of cardiac disease. An EKG performed as part of a preoperative work-up in January, revealed sinus rhythm with occasional PVCs, at that time, and a pattern of trigeminy documented on the EKG, relatively similar to what is noted today. At the time of my second assessment of the patient in the emergency room, the PVCs had subsided. He denies precious syncope. Family History: Patient's father is alive at the age of 93 with history of coronary stent Allergies Allergy/AdvReac Type Severity Reaction Status Date / Time omeprazole AdvReac Unknown GI SYMPTOMS Verified 03/03/22 09:46 Home Medications Medication Instructions Recorded Confirmed Type cholecalciferol (vitamin D3) 100 100 mcg PO QAM 02/04/22 03/03/22 History mcg (4,000 unit) capsule pediatric multivitamin no.49 1 tab PO QAM 02/04/22 03/03/22 History (Flintstones Gummies chewable tablet) Patient History Medical History Cantor esophagus Dyslipidemia borderline per pt, no meds GERD (gastroesophageal reflux disease) Hepatitis A resolved > Hiatal hernia Surgical History Family history of anesthesia complication Possible family hx of pseudocholinesterase deficiency. Per pt, told father was "hard to wake" due to "difficult time reversing the e ffects of succinylcholine." Pt states this was a long time ago and he is unable to obtain more information. Pt was never tested/never told to be tested. Pt had Inguinal hernia repair (07/18/15): Grade view 1, MAC#4, ETT 7.5 at [facility] [place] (Sux used per anesthesia record) without issue. H/O knee surgery right > arthroscopic History of esophagogastroduodenoscopy (EGD) History of inguinal hernia repair History of removal of cyst (02/16/22) Excision of a right neck mass/epidermoid cyst. Dr. 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 Required: No Beliefs That Will Affect Care: None marital status: Current Living Situation: Spouse current occupational status: retired How many Children do You have: 0 Feels Safe at Home: Yes during the past year weight has: remained stable Assistive Devices: Glasses Review of Systems Review of Systems: All systems reviewed & are unremarkable except as noted in HPI & below Physical Exam Constitutional: WD/WN, vitals as above Respiratory: normal respiratory effort, lungs clear to auscultation Cardiovascular: RRR, no murmur, no edema Gastrointestinal (Abdomen): normal bowel sounds, soft, nontender, no hepatosplenomegaly Neurologic: PERRL, EOMI, accommodation nl, no face palsy, no dysarthria Results & Data ([facility]) Vital Signs (Past 12 Hours) Vital Signs Temp Pulse Resp BP Pulse Ox O2 Del Method 03/17/22 16:43 97 Room Air 03/17/22 13:42 36.4 C L 59 L 16 145/83 H 94 Room Air Laboratory Results Cardiac Enzymes 03/17/22 Range/Units 15:12 AST 20 (13-39) U/L Troponin I High Sens 3.2 (0-20) pg/ml CBC 03/17/22 Range/Units 15:12 WBC 6.42 (4.8-10.8) K/ul RBC 4.65 (4.63-6.08) M/uL Hgb 14.7 (14.0-18.0) g/dl Hct 42.4 (40.1-51.0) % Plt Count 211 (130-400) K/uL Neut # (Auto) 3.45 (1.4-6.5) K/uL Lymph # (Auto) 2.14 (1.2-3.4) K/uL [place] # (Auto) 0.61 (0.24-0.82) K/uL Eos # (Auto) 0.16 (0-0.50) K/uL Baso # (Auto) 0.04 (0-0.2) K/uL Comprehensive Metabolic Panel 03/17/22 Range/Units 15:12 Sodium 140 (136-145) mmol/L Potassium 4.2 (3.5-5.1) mmol/L Chloride 105 (98-107) mmol/L Carbon Dioxide 28 (21-32) mmol/L BUN 21 (6-23) mg/dl Creatinine 1.43 H (0.6-1.4) mg/dl Glucose 87 (70-99(Fasting)) mg/dl Calcium 10.0 (8.5-10.1) mg/dl AST 20 (13-39) U/L ALT 19 (7-52) U/L Alkaline Phosphatase 50 (34-104) U/L Total Protein 7.5 (6.0-8.3) gm/dl Albumin 4.6 (3.4-5.0) gm/dl Intake and Output 03/17/22 03/17/22 03/17/22 06:59 14:59 22:59 Intake Total 500 / 500 Balance 500 / 500 Intake: IV 500 / 500 Sodium Chloride 0.9% 1000ML 500 500 / 500 ml @ 999 mls/hr IV .Q31M ONE Rx#:[id number] Other: Weight 86.9 kg Weight Measurement Method Chair Scale Patient Weight 03/18/22 06:59 Weight 86.9 kg
--- NOTE | 2022-03-17 18:10 | History & Physical Report ---
Date of Service March 17, 2022 Assessment & Plan (1) Dizziness: Plan: Positional dizziness Patient is 67 y/o M with PMH CKD III, dyslipidemia, Cantor's esophagus presented to ER with c/o dizziness started 03/14/22. Reports dizziness is intermittent and seems to occur with position change. Describes dizziness and "spinning" sensation sometimes with associated nausea. . CT Head:no acute intracranial findings. Labs unremarkable. TSH WNL. Negative troponin. EKG +PVCs DDX: vertigo, vestibular neuritis, CVA, orthostatic hypotension, arrhythmia and others. Pt does have positional dizziness with noted nystagmus on exam possible positional vertigo. Workup as below In ER given 1500ml NSS Orthostatics PT eval for Becky MRI brain Carotid ultrasound Meclizine prn Lyme titer pending CBC, BMP in am (2) PVCs (premature ventricular contractions): Plan: EKG sinus rhythm, +PVCs Uncertain if PVCs causing pt's dizziness Echo pending Cardiology consult. Dr Andrews evaluated and does not feel patients cardiac rhythm explains his symptoms. Recommends on holding off on initiating beta- john therapy for the PVCs given current dizziness (3) CKD (chronic kidney disease), stage III: Plan: Cr: 1.4. Baseline Cr: 1.4 Monitor and avoid nephrotoxic agents when possible (4) Dyslipidemia: Plan: Not on medication (5) Cantor esophagus: Plan: No longer taking PPI DVT Prophylaxis Lovenox SQ Full Code as per discussion with pt Follows with Dr Parra for routine care Pt was seen and care coordinated with Dr Ordaz. See addendum History of Present Illness Chief Complaint: Dizziness Primary Care Provider: Fadi Parra MD Patient is 67 y/o M with PMH CKD III, dyslipidemia, Cantor's esophagus presented to ER with c/o dizziness started 03/14/22. Reports dizziness is intermittent and seems to occur with position change. Describes dizziness and "spinning" sensation sometimes with associated nausea. Reports 3 days ago had frontal headache. Tried OTC meclizine and pressure point bands to wrists without relief. His reports that she tried taking his pulse and noticed it seemed irregular and had difficult time counting his pulse but thought it was in the 40's. Patient denies vomiting, syncope, CP, SOB, palpitations. Denies history head trauma. Denies history vertigo. Denies recent URI symptoms. Seen at PCP office today for dizziness and had EKG showed PVCs and was referred to ER for further evaluation. Denies fever/chills, diaphoresis, tinnitus, hearing loss, V/D/C, vision changes, neck pain, orthopnea, cough, sore throat, choking, otalgia, rhinorrhea, abdominal pain, paresthesias, weakness, extremity weakness, extremity edema, rashes, urinary symptoms. Allergies Allergy/AdvReac Type Severity Reaction Status Date / Time omeprazole AdvReac Unknown GI SYMPTOMS Verified 03/17/22 17:15 Home Medications Medication Instructions Recorded Confirmed Type pediatric multivitamin no.49 1 tab PO QAM 02/04/22 03/17/22 History (Flintstones Gummies chewable tablet) cholecalciferol (vitamin D3) 50 4,000 unit PO DAILY 03/17/22 03/17/22 History mcg (2,000 unit) tablet (Vitamin D3) Past Med/Surg History Medical History (Updated 03/17/22 @ 19:37 by Heaven Mendoza PA-C) Cantor esophagus CKD (chronic kidney disease), stage III Dyslipidemia borderline per pt, no meds GERD (gastroesophageal reflux disease) Hepatitis A resolved > Hiatal hernia Surgical History Family history of anesthesia complication Possible family hx of pseudocholinesterase deficiency. Per pt, told father was "hard to wake" due to "difficult time reversing the effects of succinylcholine." Pt states this was a long time ago and he is unable to obtain more information. Pt was never tested/never told to be tested. Pt had Inguinal hernia repair (07/18/15): Grade view 1, MAC#4, [place] [facility] [place] without issue. H/O knee surgery right > arthroscopic History of esophagogastroduodenoscopy (EGD) History of inguinal hernia repair History of removal of cyst (02/16/22) Excision of a right neck mass/epidermoid cyst. Dr. Johnson Hx laparoscopic cholecystectomy 2017 Hx of colonoscopy ~2017 Hx of shoulder surgery left Family History (Updated 03/17/22 @ 19:35 by Heaven Mendoza PA-C) Father Pseudocholinesterase deficiency Other Cancer Diabetes No pertinent family history Social History Smoking Status: Former smoker Second Hand Exposure: Yes; Hx Alcohol Use: No Hx Substance Use: No Preferred Language: Iranian Communication Ability: Effective Management [employer] Required: No Beliefs That Will Affect Care: None marital status: Current Living Situation: Spouse current occupational status: retired How many Children do You have: 0 Other Information That Helps Us Care for You: No Feels Safe at Home: Yes during the past year weight has: remained stable Assistive Devices: Glasses Review of Systems Review of Systems: All systems reviewed & are unremarkable except as noted in HPI & below Physical Exam Physical Exam: General: no distress, WDWN Head: normocephalic, atraumatic Eyes: PERRL, EOM's intact, conjunctiva non-injected, anicteric ENT: normal inspection external ears, nose, mucous membranes moist Neck: supple, trachea midline Lungs: clear, no respiratory distress, no wheezing/rhonchi/rales CV: RRR, no murmur, no pretibial edema Abd: normal BS, soft, non-tender Ext: no cyanosis, no calf tenderness Neuro: A&O x 3, +reproduced dizziness with ROM of neck and sitting up with noted horizontal nystagmus, no other focal deficits noted, normal affect Skin: warm, dry Results & Data Results & Data ([facility]) Vital Signs (Past 12 Hours) Vital Signs Temp Pulse Resp BP Pulse Ox O2 Del Method 03/17/22 17:10 66 17 97 03/17/22 17:04 76 15 95 03/17/22 16:40 62 15 94 03/17/22 16:30 62 94 03/17/22 16:20 62 94 03/17/22 16:10 63 15 95 03/17/22 16:01 65 22 92 03/17/22 16:43 97 Room Air 03/17/22 13:42 36.4 C L 59 L 16 145/83 H 94 Room Air Laboratory Results Short CBC 03/17/22 Range/Units 15:12 WBC 6.42 (4.8-10.8) K/ul Hgb 14.7 (14.0-18.0) g/dl Hct 42.4 (40.1-51.0) % Plt Count 211 (130-400) K/uL BMP 03/17/22 15:12 Sodium 140 Potassium 4.2 Chloride 105 Carbon Dioxide 28 BUN 21 Creatinine 1.43 H Glucose 87 Calcium 10.0 Liver Function 03/17/22 Range/Units 15:12 Total Bilirubin 0.5 (0.2-1.0) mg/dl AST 20 (13-39) U/L ALT 19 (7-52) U/L Alkaline Phosphatase 50 (34-104) U/L Albumin 4.6 (3.4-5.0) gm/dl Diagnostic Findings Head CT 03/17/22 14:08 CT OF THE HEAD WITHOUT CONTRAST CLINICAL HISTORY: Dizziness. COMPARISON STUDY: No previous studies for comparison. CT DOSE: 537.48 mGy.cm TECHNIQUE: Helical axial images of the head were obtained without IV contrast. Automated exposure control was utilized for the study. A dose lowering t echnique was utilized adhering to the principles of ALARA. FINDINGS: No acute intracranial hemorrhage, midline shift or mass effect is present. The ventricular system is unremarkable. The basal cisterns are patent. No extra-axial collections are present. There are no findings to suggest acute dural sinus thrombosis or acute territorial infarct. No significant calvarial abnormalities are present. Visualized portions of the sinuses and mastoid air cells are clear. IMPRESSION: No acute intracranial findings. ACT 112: Negative or not required by law. Electronically signed by: Scot Childress M.D. 03/17/2022 4:06 PM Chest X-Ray 03/17/22 14:09 XR chest 1V portable CLINICAL HISTORY: Chest Pain TECHNIQUE: Single frontal radiograph of the chest was obtained. Comparison: Comparison is made to chest radiograph 04/08/2018 FINDINGS: No lines and tubes are seen. The aorta is tortuous. The remainder of the cardiomediastinal silhouette is unremarkable. The lungs are clear. No evidence of pleural effusion or pneumothorax. A moderate hiatal hernia is seen. IMPRESSION: No acute chest disease. ACT 112: Negative or not required by law. Electronically signed by: Damian Yusuf M.D. 03/17/2022 3:38 PM ECG Rate (beats per minute): 71 Rhythm: sinus rhythm Findings: + PVC Supervising Physician Co-Signing Physician Notes Patient is a 67-year-old male with history of CKD, dyslipidemia, Cantor's esophagus and other microbiology presents with history of intermittent dizziness associated with positional change and nausea, frontal headache. 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 Please review HPI for complete details of presentation. Blood work is unremarkable. Lyme screen is negative. TSH is within normal limits. CT head showed no acute intracranial abnormality. Chest x-ray showed no acute process. EKG showed sinus rhythm with PVCs, QTC 447. On exam patient is moderately built and nourished, no apparent distress, normocephalic atraumatic, EOMI, normal breath sounds, clear to auscultation, S1-S2, no murmur, no pedal edema, abdomen soft, nontender , normal bowel sounds, alert, awake, oriented, grossly no focal deficits. Noted horizontal nystagmus. Patient is admitted for management of positional dizziness. Agree with neurological work-up, orthostatics and telemetry monitoring given frequent PVCs. Also obtain echo. Meclizine as needed, PT for Becky's requested. Further management based on results of work-up. I personally reviewed the record. Patient is interviewed and examined at bedside. Patient's care is coordinated with Heaven Whaley. Please refer to the documentation above for details of patient's presentation and for discussion of other issues.
[2022-03-17 20:10] LABS: Partial Thromboplastin Ratio 1.1; Partial Thromboplastin Time 29.4 Seconds (21.0-31.0); Prothrombin Time 10.6 Seconds (9.0-12.0)
[2022-03-17] MEDS ORDERED: MECLIZINE HCL 25 MG TAB PO PRN (20:13)
[2022-03-17] MEDS ORDERED: POLYETHYLENE (MIRALAX) 17 GM PACK PO PRN (20:13)
[2022-03-17] MEDS ORDERED: ONDANSETRON INJ 2 MG/ML 2 ML VIAL IV PRN (20:13)
[2022-03-17] MEDS: ACETAMINOPHEN 325 MG TAB PO PRN (20:48)
[2022-03-17] MEDS ORDERED: ENOXAPARIN INJ 40 MG/0.4 ML SYR SQ SCH (21:00)
[2022-03-17 21:17] LABS: Lyme Ab IgG w/WB Rflx Negative (Negative); Lyme Ab IgM w/WB Rflx Negative (Negative)
--- NOTE | 2022-03-17 21:37 | XRay Report ---
XR orbits for MRI CLINICAL HISTORY: Screening for foreign body for MRI TECHNIQUE: AP and lateral views of the orbits were submitted for interpretation. Comparison: None available at the time of this dictation. FINDINGS/IMPRESSION: No metallic foreign bodies are seen in the orbits. Dental fillings are noted. ACT 112: Negative or not required by law. Electronically signed by: Damian Yusuf M.D. 03/17/2022 9:35 PM
--- NOTE | 2022-03-18 04:52 | Emergency Department Note ---
Impression & Plan Dizziness, Frequent PVCs, Sinus bradycardia ED Provider Note NAME: JESSICA PATEL AGE: 67 SEX: M ARRIVES VIA: Walk-In INFORMANT: Patient ED PROVIDER(S): Bobby Galvan MD CHIEF COMPLAINT: Dizziness, Referred. PLAN: Disposition: Admit MEDICAL DECISION MAKING: The patient is a pleasant 67-year-old gentleman presents emergency department referred from his PCPs office for evaluation of dizziness that has been occurring over the past several days which she describes as consistently being provoked when he changes position from lying to sitting or sitting to standing. He denies feeling as though he may be dehydrated but does admit that he does not drink much fluids during the day and describes drinking coffee mostly and a couple glasses of water and sometimes a propel. He denies any chest pain or shortness of breath. He denies any GI or symptoms. He denies any recent illness/fevers. The patient had an EKG at his PCPs office which was normal show sinus bradycardia with PVCs and bigeminy. On arrival the patient is no acute distress, afebrile stable vital signs. He appears clinically dry. He is neurologically intact. 5/5 strength and SILT x 4 extremities. Cerebellar function intact including zvlond-pw-[id number], alternating palms, ymwi-qy-rier. EOMI. No nystamgus. PEARRL. EKG demonstrates sinus rhythm with frequent PVCs without overt acute ischemia. Similar to January 2022. Chest x-ray negative for acute cardiopulmonary process. WBC, H/H and platelets within normal limits. Chemistry without metabolic acidosis. Creatinine 1.43 similar to January 2022. Electrolytes and LFTs without significant abnormality. High-sensitivity troponin 3.2, within normal limits. TSH within normal limits. Lyme screen was negative. Covid-19 RNA, NAAT negative. CT of the head negative was negative for acute findings. Appreciate consultation by [facility] cardiology, Dr. Andrews. Appreciate recommendations for admission for further evaluation of vertiginous component to the patient's symptoms. Case was discussed with Lucita Mendoza, Ra[facility] PAC, with Dr. Conner Carlin hospitalist who will evaluate the patient for admission. Triage Nursing notes reviewed and agree them. Prior medical records reviewed Vital Signs: reviewed and remarkable for no significant abnormalities Differential diagnosis: Benign positional vertigo, dehydration, hypovolemia, anemia, tumor, infection, hypoglycemia, electrolyte abnormalities, cardiac sources, intracerebral event, toxicologic, neurologic, as well as other pathologies. ER treatment provided: See below. Diagnostics interpreted by me: ECG: Sinus rhythm, 71 bpm, frequent PVCs, no overt ST elevation or depression, QTC 447, QRS 100. Cardiac Monitoring: An order for continuous cardiac monitoring was placed and demonstrated Sinus rhythm, 71 bpm, frequent PVCs. Laboratory studies: See below Imaging studies: See below Consultation(s): Dr. Andrews, [facility] cardiology Lucita Mendoza, [email or web address], with Dr. Conner Carlin hospitalist HPI: The patient is a pleasant 67-year-old gentleman presents emergency department referred from his PCPs office for evaluation of dizziness that has been occurring over the past several days which she describes as consistently being provoked when he changes position from lying to sitting or sitting to standing. He denies feeling as though he may be dehydrated but does admit that he does not drink much fluids during the day and describes drinking coffee mostly and a couple glasses of water and sometimes a propel. He denies any chest pain or shortness of breath. He denies any GI or symptoms. He denies any recent illness/fevers. The patient had an EKG at his PCPs office which was normal show sinus bradycardia with PVCs and bigeminy. ROS: See above HPI for pertinent positives & negatives. A total of 10 systems reviewed and were otherwise negative. VITALS:See Below PHYSICAL EXAMINATION: GENERAL: Awake, alert, well-appearing, in no distress HENT: Normocephalic, atraumatic. Oropharynx with dry mucous membranes and otherwise unremarkable. EYES: Normal conjunctiva. Sclera non-icteric. EOMI. No nystamgus. PEARRL. NECK: Supple. No nuchal rigidity. FROM. No JVD. RESPIRATORY: Clear to auscultation. CARDIAC: Regular rate, normal rhythm. Extremities warm and well perfused. Pulses equal. ABDOMEN: Soft, non-distended. No tenderness to palpation. No rebound or guar ding. No masses. RECTAL: Deferred. MUSCULOSKELETAL: Chest examination reveals no tenderness. The back is symmetrical on inspection without obvious abnormality. There is no CVA tenderness to palpation. No joint edema. LOWER EXTREMITIES: Calves are equal size bilaterally and non-tender. No edema. No discoloration. NEURO: Normal sensorium. No sensory or motor deficits noted. 5/5 strength and SILT x 4 extremities. Cerebellar function intact including dnufje-xs-alhc, alternating palms, tkcd-re-ptxm. SKIN: No rash or jaundice noted. Bobby Galvan MD Past Med/Surg History Medical History (Updated 03/18/22 @ 14:48 by Bobby Galvan MD) Cantor esophagus CKD (chronic kidney disease), stage III Dyslipidemia borderline per pt, no meds GERD (gastroesophageal reflux disease) Hepatitis A resolved > Hiatal hernia Surgical History Family history of anesthesia complication Possible family hx of pseudocholinesterase deficiency. Per pt, told father was "hard to wake" due to "difficult time reversing the effects of succinylcholine." Pt states this was a long time ago and he is unable to obtain more information. Pt was never tested/never told to be tested. Pt had Inguinal hernia repair (07/18/15): Grade view 1, MAC#4, ETT 7.5 at [facility] (Sux used per anesthesia record) without issue. H/O knee surgery right > arthroscopic History of esophagogastroduodenoscopy (EGD) History of inguinal hernia repair History of removal of cyst (02/16/22) Excision of a right neck mass/epidermoid cyst. Dr. Johnson Hx laparoscopic cholecystectomy 2017 Hx of colonoscopy ~2017 Hx of shoulder surgery left Family History (Updated 03/17/22 @ 19:35 by Heaven Mendoza PA-C) Father Pseudocholinesterase deficiency Other Cancer Diabetes No pertinent family history Social History Smoking Status: Former smoker Second Hand Exposure: Yes; Hx Alcohol Use: No Hx Substance Use: No Preferred Language: Turkmen Communication Ability: Effective Talent Specialist Required: No Beliefs That Will Affect Care: None marital status: Current Living Situation: Spouse current occupational status: retired How many Children do You have: 0 Other Information That Helps Us Care for You: No Feels Safe at Home: Yes during the past year weight has: remained stable Assistive Devices: None Allergies Allergies Allergy/AdvReac Type Severity Reaction Status Date / Time omeprazole AdvReac Unknown GI SYMPTOMS Verified 03/17/22 17:15 Home Meds Home Medications Medication Instructions Recorded Confirmed pediatric multivitamin no.49 1 tab PO QAM 02/04/22 03/17/22 (Flintstones Gummies chewable tablet) cholecalciferol (vitamin D3) 50 4,000 unit PO DAILY 03/17/22 03/17/22 mcg (2,000 unit) tablet (Vitamin D3) Results & Data (ED) Vital Signs Vital Signs - 24 hr 03/17/22 16:20 03/17/22 16:43 03/17/22 16:01 Pulse Rate - Lying 71 Pulse Rate - Sitting 73 Pulse Rate - Standing 62 Pulse Rate 65 Pulse Rate from SpO2 Sensor 53 L Respiratory Rate 22 Blood Pressure - Lying 120/90 Blood Pressure - Sitting 149/97 H Blood Pressure- Standing 125/84 Blood Pressure Blood Pressure Mean Pulse Oximetry 97 92 Oxygen Delivery Method Room Air 03/17/22 16:10 03/17/22 16:20 03/17/22 16:30 Pulse Rate - Lying Pulse Rate - Sitting Pulse Rate - Standing Pulse Rate 63 62 62 Pulse Rate from SpO2 Sensor 51 L 61 Respiratory Rate 15 Blood Pressure - Lying Blood Pressure - Sitting Blood Pressure- Standing Blood Pressure Blood Pressure Mean Pulse Oximetry 95 94 94 Oxygen Delivery Method 03/17/22 16:40 03/17/22 17:04 03/17/22 17:10 Pulse Rate - Lying Pulse Rate - Sitting Pulse Rate - Standing Pulse Rate 62 76 66 Pulse Rate from SpO2 Sensor 57 L 63 51 L Respiratory Rate 15 15 17 Blood Pressure - Lying Blood Pressure - Sitting Blood Pressure- Standing Blood Pressure Blood Pressure Mean Pulse Oximetry 94 95 97 Oxygen Delivery Method 03/17/22 17:20 03/17/22 17:30 03/17/22 17:31 Pulse Rate - Lying Pulse Rate - Sitting Pulse Rate - Standing Pulse Rate 70 65 62 Pulse Rate from SpO2 Sensor 60 59 L Respiratory Rate 21 14 12 Blood Pressure - Lying Blood Pressure - Sitting Blood Pressure- Standing Blood Pressure Blood Pressure Mean Pulse Oximetry 97 98 Oxygen Delivery Method 03/17/22 17:31 03/17/22 17:40 03/17/22 17:50 Pulse Rate - Lying Pulse Rate - Sitting Pulse Rate - Standing Pulse Rate 63 70 Pulse Rate from SpO2 Sensor 49 L 56 L Respiratory Rate 13 18 Blood Pressure - Lying Blood Pressure - Sitting Blood Pressure- Standing Blood Pressure 141/101 H Blood Pressure Mean 114 Pulse Oximetry 97 97 Oxygen Delivery Method 03/17/22 18:00 03/17/22 18:00 03/17/22 18:10 Pulse Rate - Lying Pulse Rate - Sitting Pulse Rate - Standing Pulse Rate 62 75 Pulse Rate from SpO2 Sensor 59 L 60 Respiratory Rate 14 15 Blood Pressure - Lying Blood Pressure - Sitting Blood Pressure- Standing Blood Pressure 126/80 Blood Pressure Mean 95 Pulse Oximetry 97 98 Oxygen Delivery Method Laboratory Data Attestation: I reviewed the patient's lab results. Result diagrams: 03/18/22 05:36 03/18/22 05:36 Lab Results 03/17/22 03/17/22 03/17/22 Range/Units 15:12 15:12 15:12 WBC 6.42 (4.8-10.8) K/ul RBC 4.65 (4.63-6.08) M/uL Hgb 14.7 (14.0-18.0) g/dl Hct 42.4 (40.1-51.0) % MCV 91.2 (80.0-100.0) fL MCH 31.6 (25.0-34.0) pg MCHC 34.7 (32.0-36.0) g/dL RDW Std Deviation 42.5 (36.4-46.3) fL RDW Coeff of Gj 12.9 (11.5-14.5) % Plt Count 211 (130-400) K/uL MPV 11.1 (9.4-12.4) fL Immature Gran % (Auto) 0.3 % Neut % (Auto) 53.8 % Lymph % (Auto) 33.3 % Arthur % (Auto) 9.5 % Eos % (Auto) 2.5 % Baso % (Auto) 0.6 % Neut # (Auto) 3.45 (1.4-6.5) K/uL Lymph # (Auto) 2.14 (1.2-3.4) K/uL Arthur # (Auto) 0.61 (0.24-0.82) K/uL Eos # (Auto) 0.16 (0-0.50) K/uL Baso # (Auto) 0.04 (0-0.2) K/uL Immature Gran # (Auto) 0.02 (0.00-0.02) K/uL PT (9.0-12.0) Seconds INR (0.9-1.1) APTT (21.0-31.0) Seconds PTT Ratio Sodium 140 (136-145) mmol/L Potassium 4.2 (3.5-5.1) mmol/L Chloride 105 (98-107) mmol/L Carbon Dioxide 28 (21-32) mmol/L Anion Gap 7 (3-11) BUN 21 (6-23) mg/dl Creatinine 1.43 H (0.6-1.4) mg/dl Est Cr Clr Drug Dosing 51.8 ml/min Est GFR ( Amer) 58.3 ml/min Est GFR (Non-Af Amer) 50.3 ml/min BUN/Creatinine Ratio 14.7 (10-20) Glucose 87 (70-99(Fasting)) mg/dl Calcium 10.0 (8.5-10.1) mg/dl Phosphorus (2.5-4.9) mg/dl Magnesium 2.3 (1.7-2.4) mg/dl Total Bilirubin 0.5 (0.2-1.0) mg/dl AST 20 (13-39) U/L ALT 19 (7-52) U/L Alkaline Phosphatase 50 (34-104) U/L Troponin I High Sens 3.2 (0-20) pg/ml Total Protein 7.5 (6.0-8.3) gm/dl Albumin 4.6 (3.4-5.0) gm/dl Globulin 2.9 (2.5-4.0) gm/dl Albumin/Globulin Ratio 1.6 (0.9-2) TSH 3.756 (0.300-4.500) uIu/ml Lyme Disease IgG Ab (Negative) Lyme Disease IgM Ab (Negative) SARS-CoV-2, RNA, NAAT (NEGATIVE) 03/17/22 03/17/22 03/17/22 Range/Units 15:12 15:12 15:19 WBC (4.8-10.8) K/ul RBC (4.63-6.08) M/uL Hgb (14.0-18.0) g/dl Hct (40.1-51.0) % MCV (80.0-100.0) fL MCH (25.0-34.0) pg MCHC (32.0-36.0) g/dL RDW Std Deviation (36.4-46.3) fL RDW Coeff of Jg (11.5-14.5) % Plt Count (130-400) K/uL MPV (9.4-12.4) fL Immature Gran % (Auto) % Neut % (Auto) % Lymph % (Auto) % Arthur % (Auto) % Eos % (Auto) % Baso % (Auto) % Neut # (Auto) (1.4-6.5) K/uL Lymph # (Auto) (1.2-3.4) K/uL Arthur # (Auto) (0.24-0.82) K/uL Eos # (Auto) (0-0.50) K/uL Baso # (Auto) (0-0.2) K/uL Immature Gran # (Auto) (0.00-0.02) K/uL PT 10.6 (9.0-12.0) Seconds INR 1.0 (0.9-1.1) APTT 29.4 (21.0-31.0) Seconds PTT Ratio 1.1 Sodium (136-145) mmol/L Potassium (3.5-5.1) mmol/L Chloride (98-107) mmol/L Carbon Dioxide (21-32) mmol/L Anion Gap (3-11) BUN (6-23) mg/dl Creatinine (0.6-1.4) mg/dl Est Cr Clr Drug Dosing ml/min Est GFR ( Amer) ml/min Est GFR (Non-Af Amer) ml/min BUN/Creatinine Ratio (10-20) Glucose (70-99(Fasting)) mg/dl Calcium (8.5-10.1) mg/dl Phosphorus 3.1 (2.5-4.9) mg/dl Magnesium (1.7-2.4) mg/dl Total Bilirubin (0.2-1.0) mg/dl AST (13-39) U/L ALT (7-52) U/L Alkaline Phosphatase (34-104) U/L Troponin I High Sens (0-20) pg/ml Total Protein (6.0-8.3) gm/dl Albumin (3.4-5.0) gm/dl Globulin (2.5-4.0) gm/dl Albumin/Globulin Ratio (0.9-2) TSH (0.300-4.500) uIu/ml Lyme Disease IgG Ab Negative (Negative) Lyme Disease IgM Ab Negative (Negative) SARS-CoV-2, RNA, NAAT (NEGATIVE) 03/17/22 Range/Units 17:15 WBC (4.8-10.8) K/ul RBC (4.63-6.08) M/uL Hgb (14.0-18.0) g/dl Hct (40.1-51.0) % MCV (80.0-100.0) fL MCH (25.0-34.0) pg MCHC (32.0-36.0) g/dL RDW Std Deviation (36.4-46.3) fL RDW Coeff of Jg (11.5-14.5) % Plt Count (130-400) K/uL MPV (9.4-12.4) fL Immature Gran % (Auto) % Neut % (Auto) % Lymph % (Auto) % Arthur % (Auto) % Eos % (Auto) % Baso % (Auto) % Neut # (Auto) (1.4-6.5) K/uL Lymph # (Auto) (1.2-3.4) K/uL Arthur # (Auto) (0.24-0.82) K/uL Eos # (Auto) (0-0.50) K/uL Baso # (Auto) (0-0.2) K/uL Immature Gran # (Auto) (0.00-0.02) K/uL PT (9.0-12.0) Seconds INR (0.9-1.1) APTT (21.0-31.0) Seconds PTT Ratio Sodium (136-145) mmol/L Potassium (3.5-5.1) mmol/L Chloride (98-107) mmol/L Carbon Dioxide (21-32) mmol/L Anion Gap (3-11) BUN (6-23) mg/dl Creatinine (0.6-1.4) mg/dl Est Cr Clr Drug Dosing ml/min Est GFR ( Amer) ml/min Est GFR (Non-Af Amer) ml/min BUN/Creatinine Ratio (10-20) Glucose (70-99(Fasting)) mg/dl Calcium (8.5-10.1) mg/dl Phosphorus (2.5-4.9) mg/dl Magnesium (1.7-2.4) mg/dl Total Bilirubin (0.2-1.0) mg/dl AST (13-39) U/L ALT (7-52) U/L Alkaline Phosphatase (34-104) U/L Troponin I High Sens (0-20) pg/ml Total Protein (6.0-8.3) gm/dl Albumin (3.4-5.0) gm/dl Globulin (2.5-4.0) gm/dl Albumin/Globulin Ratio (0.9-2) TSH (0.300-4.500) uIu/ml Lyme Disease IgG Ab (Negative) Lyme Disease IgM Ab (Negative) SARS-CoV-2, RNA, NAAT NEGATIVE (NEGATIVE) Administered Medications Acetaminophen (Acetaminophen 325 Mg Tab) 650 mg PO Q4H PRN PRN Reason: Pain or Fever Stop: 04/16/22 20:12 Last Admin: 03/18/22 13:42 Dose: 650 mg Documented By: [id number] Admin: 03/18/22 05:12 Dose: 650 mg Documented By: Admin: 03/17/22 20:48 Dose: 650 mg Documented By: JONO Enoxaparin Sodium (Enoxaparin Inj 40 Mg/0.4 Ml Syr) 40 mg SQ Q24H [facility] Stop: 04/16/22 20:59 Last Admin: 03/17/22 20:46 Dose: Not Given Documented By: JONO Meclizine HCl (Meclizine Hcl 25 Mg Tab) 25 mg PO Q6H PRN PRN Reason: Vertigo Stop: 04/16/22 20:12 Last Admin: 03/17/22 20:46 Dose: 25 mg Documented By: JONO Discontinued Medications Sodium Chloride (Nss 1000ml) 500 mls @ 999 mls/hr IV .Q31M ONE Stop: 03/17/22 14:38 Last Infusion: 03/17/22 16:44 Dose: 0 mls/hr Documented By: Admin: 03/17/22 16:01 Dose: 999 mls/hr Documented By: [id number] Sodium Chloride (Nss 1000ml) 1,000 mls @ 999 mls/hr IV .Q1H1M ONE Stop: 03/17/22 17:51 Last Infusion: 03/17/22 18:37 Dose: 0 mls/hr Documented By: [id number] Admin: 03/17/22 17:04 Dose: 999 mls/hr Documented By: [id number] Imaging Data Radiologist's Impression: Head CT 03/17/22 14:08 CT OF THE HEAD WITHOUT CONTRAST CLINICAL HISTORY: Dizziness. COMPARISON STUDY: No previous studies for comparison. CT DOSE: 537.48 mGy.cm TECHNIQUE: Helical axial images of the head were obtained without IV contrast. Automated exposure control was utilized for the study. A dose lowering te chnique was utilized adhering to the principles of ALARA. FINDINGS: No acute intracranial hemorrhage, midline shift or mass effect is present. The ventricular system is unremarkable. The basal cisterns are patent. No extra-axial collections are present. There are no findings to suggest acute dural sinus thrombosis or acute territorial infarct. No significant calvarial abnormalities are present. Visualized portions of the sinuses and mastoid air cells are clear. IMPRESSION: No acute intracranial findings. ACT 112: Negative or not required by law. Electronically signed by: Scot Childress M.D. 03/17/2022 4:06 PM Chest X-Ray 03/17/22 14:09 XR chest 1V portable CLINICAL HISTORY: Chest Pain TECHNIQUE: Single frontal radiograph of the chest was obtained. Comparison: Comparison is made to chest radiograph 04/08/2018 FINDINGS: No lines and tubes are seen. The aorta is tortuous. The remainder of the cardiomediastinal silhouette is unremarkable. The lungs are clear. No evidence of pleural effusion or pneumothorax. A moderate hiatal hernia is seen. IMPRESSION: No acute chest disease. ACT 112: Negative or not required by law. Electronically signed by: Damian Yusuf M.D. 03/17/2022 3:38 PM Discharge Plan Visit Data Chief Complaint: Illness Stated Complaint: EKG RESULTS ED Provider: Bobby Galvan Discharge Problem: Dizziness, Frequent PVCs, Sinus bradycardia Patient Disposition: Admitted As Inpatient Discharge Instructions Interventions: ED Discharge Assessment Last Done: 03/17/22 20:02
[2022-03-18] MEDS: ACETAMINOPHEN 325 MG TAB PO PRN ×2 (05:12→13:42)
[2022-03-18 06:01] LABS: Hematocrit (blood only) 38.3 % (40.1-51.0); Hemoglobin 13.2 g/dl (14.0-18.0); Mean Corpuscular Hemoglobin 31.7 pg (25.0-34.0); Mean Corpuscular Hgb Conc 34.5 g/dL (32.0-36.0); Mean Corpuscular Volume 92.1 fL (80.0-100.0); Mean Platelet Volume 11.2 fL (9.4-12.4); Platelet Count 178 K/uL (130-400); RDW Standard Deviation 43.1 fL (36.4-46.3); Red Blood Count 4.16 M/uL (4.63-6.08); White Blood Count 5.42 K/ul (4.8-10.8)
[2022-03-18 06:17] LABS: BUN Creatinine Ratio 17.5 (10-20); Calcium 8.8 mg/dl (8.5-10.1); Creatinine Clr Calc Pharmacy 61.7 ml/min; Est GFR (African American) 72.1 ml/min; Est GFR (Non-African American) 62.2 ml/min; Potassium 4.1 mmol/L (3.5-5.1)
--- NOTE | 2022-03-18 06:31 | Electrocardiogram Report ---
Test Reason : Blood Pressure : / mmHG Vent. Rate : 071 BPM Atrial Rate : 071 BPM P-R Int : 150 ms QRS Dur : 100 ms QT Int : 412 ms P-R-T Axes : 048 007 041 degrees QTc Int : 447 ms Poor data quality, interpretation may be adversely affected Sinus rhythm with frequent Premature ventricular complexes Otherwise normal ECG When compared with ECG of 27-JAN-2022 10:13, No significant change was found Confirmed by Monroe Soto ([id number]) on 03/18/2022 6:30:52 AM Referred By: Confirmed By:Monroe Soto
--- NOTE | 2022-03-18 10:17 | Magnetic Resonance Report ---
MRI OF THE BRAIN WITHOUT CONTRAST CLINICAL HISTORY: dizziness COMPARISON STUDY: Head CT March 17, 2022. TECHNIQUE: Utilizing a 1.5 Chery magnet and dedicated coil, multiplanar, multiecho imaging of the bra in was performed without IV contrast. FINDINGS: There are no foci of restricted diffusion to suggest acute infarct. No acute intracranial h emorrhage, shift present. Brain normal. Ventricular system is normal. Basal cisterns are patent. Ther e are no extra-axial collections. A few white matter T2 hyperintense foci favor mild small vessel dis ease. No intracranial masses are identified on this unenhanced exam. There is no evidence for sinusit is. There is no mastoid fluid. IMPRESSION: No acute intracranial findings. ACT 112: Negative or not required by law. Electronically signed by: Scot Childress M.D. 03/18/2022 10:16 AM
--- NOTE | 2022-03-18 10:34 | Ultrasound Report ---
US carotid doppler BI CLINICAL HISTORY: 67 years-old Male with dizziness. Acute dizziness COMPARISON: Brain MRI of same day TECHNIQUE: Multiple real time sonographic images of the carotid bifurcations were obtained assessing souza scale, color Doppler and spectral wave form appearance FINDINGS: RIGHT CAROTID: The peak systolic velocity measured within the right ICA is 60 cm/sec. The end diast olic velocity measured 30 cm/sec. The ICA to CCA ratio measured 0.63 which correlates with a stenosi s of 0-50%. Mild atherosclerotic plaque of the right carotid bulb. LEFT CAROTID: The peak systolic velocity measured within the right ICA is 66 cm/sec. The end diasto lic velocity measured 26 cm/sec. The ICA to CCA ratio measured 0.61 which correlates with a stenosis of 0-50%. Mild atherosclerotic plaque of the left carotid bulb. There is normal antegrade vertebral flow bilaterally. IMPRESSION: 1. Mild atherosclerosis without hemodynamically significant stenosis. 2. Normal antegrade vertebral flow bilaterally. ACT 112: Negative or not required by law. The above report was generated using voice recognition software. It may contain grammatical, syntax o r spelling errors. Electronically signed by: Alan Moe M.D. 03/18/2022 10:32 AM
--- NOTE | 2022-03-18 13:07 | Cardiology Progress Note ---
Date of Service March 18, 2022 Assessment & Plan (1) Dizziness: Plan: - Noncontrast CT of the brain , MRI of the brain unremarkable. -Symptoms certainly suggestive of vertigo. Agree with physical therapy. (2) PVCs (premature ventricular contractions): Plan: - Patient previously been observed to have PVCs at time of EKG in January,, without associated symptoms. Labs reveal normal electrolytes. -Echocardiogram reassuring with normal biventricular systolic function, mild aortic regurgitation. -Future considerations include medication therapy with beta-john, however given his symptoms of dizziness, will hold off as if he has a side effect, would be difficult to distinguish the origin. (3) Carotid artery plaque: Plan: - Carotid duplex without significant obstruction, does note mild atherosclerosis. -Historic LDL cholesterol around 109 mg/dL -Recommend atorvastatin 10 mg daily. (4) Ascending aorta dilatation: Plan: - The proximal portion of the ascending aorta was measured to be 4.3 cm on echocardiogram. -We will likely plan on a CT of the chest as an outpatient for further assessment to exclude further dilatation out of the [id number]-[id number] of the echocardiogram. Disposition: Stable from a cardiac perspective for discharge, with ongoing therapy for vertigo, outpatient cardiology follow-up for PVCs and mild dilatation of the ascending aorta perhaps within a month. Admission and Anticipated Discharge Date Admission Date: March 17, 2022 Subjective Patient seen in cardiology follow-up of premature ventricular contractions, and chief complaint of dizziness. He had received physical therapy including Becky maneuver shortly before my arrival. At the time of my assessment he was eating his noontime meal, and felt improvement with regards to his dizziness. Vital signs are stable. Telemetry reveals sinus rhythm with occasional PVCs including episodes of ventricular bigeminy. Review of Systems Review of Systems: All systems reviewed & are unremarkable except as noted in HPI & below Physical Exam Constitutional: WD/WN, vitals as above Respiratory: normal respiratory effort, lungs clear to auscultation Cardiovascular: RRR, no murmur, no edema Gastrointestinal (Abdomen): normal bowel sounds, soft, nontender, no hepatosplenomegaly Neurologic: PERRL, EOMI, accommodation nl, no face palsy, no dysarthria Results & Data ([facility]) Vital Signs (Past 12 Hours) Vital Signs Temp Pulse Pulse Resp BP BP Pulse Ox 03/18/22 11:21 36.5 C 55 L 19 122/73 97 03/18/22 08:31 36.8 C 83 19 107/65 92 03/18/22 08:08 03/18/22 08:00 60 03/18/22 04:44 36.5 C 57 L 14 125/75 94 O2 Del Method 03/18/22 11:21 Room Air 03/18/22 08:31 Room Air 03/18/22 08:08 Room Air 03/18/22 08:00 03/18/22 04:44 Room Air Laboratory Results Cardiac Enzymes 03/17/22 Range/Units 15:12 AST 20 (13-39) U/L Troponin I High Sens 3.2 (0-20) pg/ml Coagulation 03/17/22 Range/Units 15:12 PT 10.6 (9.0-12.0) Seconds APTT 29.4 (21.0-31.0) Seconds CBC 03/17/22 03/18/22 Range/Units 15:12 05:36 WBC 6.42 5.42 (4.8-10.8) K/ul RBC 4.65 4.16 L (4.63-6.08) M/uL Hgb 14.7 13.2 L (14.0-18.0) g/dl Hct 42.4 38.3 L (40.1-51.0) % Plt Count 211 178 (130-400) K/uL Neut # (Auto) 3.45 (1.4-6.5) K/uL Lymph # (Auto) 2.14 (1.2-3.4) K/uL [place] # (Auto) 0.61 (0.24-0.82) K/uL Eos # (Auto) 0.16 (0-0.50) K/uL Baso # (Auto) 0.04 (0-0.2) K/uL Comprehensive Metabolic Panel 03/17/22 03/18/22 Range/Units 15:12 05:36 Sodium 140 140 (136-145) mmol/L Potassium 4.2 4.1 (3.5-5.1) mmol/L Chloride 105 110 H (98-107) mmol/L Carbon Dioxide 28 25 (21-32) mmol/L BUN 21 21 (6-23) mg/dl Creatinine 1.43 H 1.20 (0.6-1.4) mg/dl Glucose 87 104 H (70-99(Fasting)) mg/dl Calcium 10.0 8.8 (8.5-10.1) mg/dl AST 20 (13-39) U/L ALT 19 (7-52) U/L Alkaline Phosphatase 50 (34-104) U/L Total Protein 7.5 (6.0-8.3) gm/dl Albumin 4.6 (3.4-5.0) gm/dl Intake and Output 03/17/22 03/18/22 03/18/22 22:59 06:59 14:59 Intake Total 1500 / 1500 Balance 1500 / 1500 Intake: IV 1500 / 1500 Sodium Chloride 0.9% 1000ML 1, 1500 / 1500 000 ml @ 999 mls/hr IV .Q1H1M ONE Rx#:[id number] Other: # Unmeasured Voids 1 1 Weight 86.9 kg 86.9 kg Weight Measurement Method Built in [facility] Built in [facility]
[2022-03-18] MEDS ORDERED: ATORVASTATIN 10 MG TAB PO SCH (13:15)
--- NOTE | 2022-03-18 15:30 | Hospitalist Progress Note ---
Date of Service March 18, 2022 Assessment & Plan (1) Dizziness: Plan: Positional dizziness Patient is 67 y/o M with PMH CKD III, dyslipidemia, Cantor's esophagus presented to ER with c/o dizziness started 03/14/22. Reports dizziness is intermittent and seems to occur with position change. Describes dizziness and "spinning" sensation sometimes with associated nausea. . CT Head:no acute intracranial findings. Labs unremarkable. TSH WNL. Negative troponin. EKG +PVCs DDX: vertigo, vestibular neuritis, CVA, orthostatic hypotension, arrhythmia and others. Pt does have positional dizziness with noted nystagmus on exam possible positional vertigo. Workup as below In ER given 1500ml NSS Orthostatics-did not have any orthostatic symptoms PT eval for Becky-was done with Becky MRI brain-negative for any stroke Carotid ultrasound-negative for any significant obstruction Meclizine prn Lyme titer pending-negative No more symptoms reported Patient remained stable and will be discharged home this afternoon (2) PVCs (premature ventricular contractions): Plan: EKG sinus rhythm, +PVCs Uncertain if PVCs causing pt's dizziness Echo pending-normal LV wall thickness, LV wall motion is normal, systolic function is normal with EF 55 to 60%, mild AR, normal aortic root diameter and proximal ascending aorta is mildly dilated at 4.3 cm Appreciate cardiology input and recommendation Will have outpatient studies as per water regulator and valve repairer (3) CKD (chronic kidney disease), stage III: Plan: Cr: 1.4. Baseline Cr: 1.4 Monitor and avoid nephrotoxic agents when possible Creatinine has been normalized (4) Dyslipidemia: Plan: Not on medication (5) Cantor esophagus: Plan: No longer taking PPI DVT Prophylaxis Lovenox SQ Full Code as per discussion with pt Follows with Dr Parra for routine care He will be discharged home this afternoon Admission and Anticipated Discharge Date Admission Date: March 17, 2022 Subjective 03/18/2022 The patient was seen and examined in medical telemetry unit He was admitted with dizziness with ambulation which is resolved Denies any other significant symptom No orthostasis noted And he will be discharged home this afternoon Review of Systems Review of Systems: All systems reviewed and are unremarkable except as noted below Physical Exam Physical Exam: Lying in bed comfortably Constitutional: well developed, well nourished and average body habitus; not ill appearing Eyes: PERRL, conjunctivae normal, anicteric sclerae ENMT: external ear and nose normal, oropharynx normal Neck: trachea midline, no thyromegaly Respiratory: no respiratory distress Auscultation: lungs clear to auscultation bilaterally Cardiovascular: Rate/Rhythm: regular rate and regular rhythm; not tachycardic Heart Sounds: normal S1 and normal S2; no murmur Extremities: no edema Gastrointestinal (Abdomen): Inspection/Auscultation: normal bowel sounds; abdomen not distended Percussion/Palpation: abdomen soft; abdomen nontender Musculoskeletal: No acute arthritis involving any joint Neurologic: Alert, awake and oriented x3. No focal sensory or no motor deficit appreciated Psychiatric: A+Ox3, euthymic affect Lymphatic: no cervical or axillary lymphadenopathy Results & Data Results & Data ([facility]) Vital Signs (Past 12 Hours) Vital Signs Temp Pulse Pulse Pulse Resp BP BP 03/18/22 15:10 57 L 03/18/22 15:01 36.8 C 60 18 107/61 03/18/22 11:21 36.5 C 55 L 19 122/73 03/18/22 08:31 36.8 C 83 19 107/65 03/18/22 08:08 03/18/22 08:00 60 03/18/22 04:44 36.5 C 57 L 14 125/75 Pulse Ox O2 Del Method 03/18/22 15:10 03/18/22 15:01 98 Room Air 03/18/22 11:21 97 Room Air 03/18/22 08:31 92 Room Air 03/18/22 08:08 Room Air 03/18/22 08:00 03/18/22 04:44 94 Room Air Laboratory Results Short CBC 03/17/22 03/18/22 Range/Units 15:12 05:36 WBC 6.42 5.42 (4.8-10.8) K/ul Hgb 14.7 13.2 L (14.0-18.0) g/dl Hct 42.4 38.3 L (40.1-51.0) % Plt Count 211 178 (130-400) K/uL BMP 03/17/22 03/18/22 15:12 05:36 Sodium 140 140 Potassium 4.2 4.1 Chloride 105 110 H Carbon Dioxide 28 25 BUN 21 21 Creatinine 1.43 H 1.20 Glucose 87 104 H Calcium 10.0 8.8 Liver Function 03/17/22 Range/Units 15:12 Total Bilirubin 0.5 (0.2-1.0) mg/dl AST 20 (13-39) U/L ALT 19 (7-52) U/L Alkaline Phosphatase 50 (34-104) U/L Albumin 4.6 (3.4-5.0) gm/dl Medications Administered Current Inpatient Medications Acetaminophen (Acetaminophen 325 Mg Tab) 650 mg PO Q4H PRN PRN Reason: Pain or Fever Stop: 04/16/22 20:12 Last Admin: 03/18/22 13:42 Dose: 650 mg Atorvastatin Calcium (Atorvastatin 10 Mg Tab) 10 mg PO QAM BETTY Stop: 04/17/22 13:14 Last Admin: 03/18/22 15:17 Dose: 10 mg Enoxaparin Sodium (Enoxaparin Inj 40 Mg/0.4 Ml Syr) 40 mg SQ Q24H BETTY Stop: 04/16/22 20:59 Last Admin: 03/17/22 20:46 Dose: Not Given Meclizine HCl (Meclizine Hcl 25 Mg Tab) 25 mg PO Q6H PRN PRN Reason: Vertigo Stop: 04/16/22 20:12 Last Admin: 03/17/22 20:46 Dose: 25 mg Ondansetron HCl (Ondansetron Inj 2 Mg/Ml 2 Ml Vial) 4 mg IV Q6H PRN PRN Reason: Nausea Stop: 04/16/22 20:12 Polyethylene Glycol (Polyethylene (Miralax) 17 Gm Pack) 17 gm PO DAILY PRN PRN Reason: Constipation Stop: 04/16/22 20:12
--- NOTE | 2022-03-18 15:55 | Communication Note ---
Date of Service: March 18, 2022 By CMS guidelines, a determination that the admission or continued stay is not medically necessary has been made by a member of the UR committee and a physician for this hospital stay, therefore a Code 44 will be completed and the Inpatient admission will be changed to outpatient. Frederick Adan MD Member, Utilization Javascript Application Developer
--- NOTE | 2022-03-18 17:09 | Discharge Summary ---
Date of Service March 18, 2022 Admission HPI Per Admitting Provider Patient is 67 y/o M with PMH CKD III, dyslipidemia, Cantor's esophagus presented to ER with c/o dizziness started 03/14/22. Reports dizziness is intermittent and seems to occur with position change. Describes dizziness and "spinning" sensation sometimes with associated nausea. Reports 3 days ago had frontal headache. Tried OTC meclizine and pressure point bands to wrists without relief. His reports that she tried taking his pulse and noticed it seemed irregular and had difficult time counting his pulse but thought it was in the 40's. Patient denies vomiting, syncope, CP, SOB, palpitations. Denies history head trauma. Denies history vertigo. Denies recent URI symptoms. Seen at PCP office today for dizziness and had EKG showed PVCs and was referred to ER for further evaluation. Denies fever/chills, diaphoresis, tinnitus, hearing loss, V/D/C, vision changes, neck pain, orthopnea, cough, sore throat, choking, otalgia, rhinorrhea, abdominal pain, paresthesias, weakness, extremity weakness, extremity edema, rashes, urinary symptoms. Admission Exam Per Admitting Provider Physical Exam: General: no distress, WDWN Head: normocephalic, atraumatic Eyes: PERRL, EOM's intact, conjunctiva non-injected, anicteric ENT: normal inspection external ears, nose, mucous membranes moist Neck: supple, trachea midline Lungs: clear, no respiratory distress, no wheezing/rhonchi/rales CV: RRR, no murmur, no pretibial edema Abd: normal BS, soft, non-tender Ext: no cyanosis, no calf tenderness Neuro: A&O x 3, +reproduced dizziness with ROM of neck and sitting up with noted horizontal nystagmus, no other focal deficits noted, normal affect Skin: warm, dry Principal Diagnosis Dizziness likely secondary to orthostasis-resolved, frequent PVCs, GERD Discharge Exam Lying in bed comfortably Constitutional well developed, well nourished and average body habitus; not ill appearing Eyes PERRL, conjunctivae normal, anicteric sclerae ENMT external ear and nose normal, oropharynx normal Neck trachea midline, no thyromegaly Respiratory no respiratory distress Auscultation: lungs clear to auscultation bilaterally Cardiovascular Rate/Rhythm: regular rate and regular rhythm; not tachycardic Heart Sounds: normal S1 and normal S2; no murmur Extremities: no edema Gastrointestinal (Abdomen) Inspection/Auscultation: normal bowel sounds; abdomen not distended Percussion/Palpation: abdomen soft; abdomen nontender Psychiatric A+Ox3, euthymic affect Lymphatic no cervical or axillary lymphadenopathy Discharge Data Allergies Allergy/AdvReac Type Severity Reaction Status Date / Time omeprazole AdvReac Unknown GI SYMPTOMS Verified 03/17/22 17:15 Consultations 03/17/22 17:15 ED Decision to Admit Stat 03/17/22 20:13 Consult Cardiology Routine Ordered Studies 03/17/22 14:08 CT head/brain wo con Stat 03/17/22 19:29 Carotid duplex [US carotid doppler BI] Routine MRI Brain [MR brain wo con] Stat Hospital Course (1) Dizziness: Positional dizziness Patient is 67 y/o M with PMH CKD III, dyslipidemia, Cantor's esophagus presented to ER with c/o dizziness started 03/14/22. Reports dizziness is intermittent and seems to occur with position change. Describes dizziness and "spinning" sensation sometimes with associated nausea. . CT Head:no acute intracranial findings. Labs unremarkable. TSH WNL. Negative troponin. EKG +PVCs DDX: vertigo, vestibular neuritis, CVA, orthostatic hypotension, arrhythmia and others. Pt does have positional dizziness with noted nystagmus on exam possible positional vertigo. Workup as below In ER given 1500ml NSS Orthostatics-did not have any orthostatic symptoms PT eval for Becky-was done with Becky MRI brain-negative for any stroke Carotid ultrasound-negative for any significant obstruction Meclizine prn Lyme titer pending-negative No more symptoms reported Patient remained stable and will be discharged home this afternoon (2) PVCs (premature ventricular contractions): EKG sinus rhythm, +PVCs Uncertain if PVCs causing pt's dizziness Echo pending-normal LV wall thickness, LV wall motion is normal, systolic function is normal with EF 55 to 60%, mild AR, normal aortic root diameter and proximal ascending aorta is mildly dilated at 4.3 cm Appreciate cardiology input and recommendation Will have outpatient studies as per monologist (3) CKD (chronic kidney disease), stage III: Cr: 1.4. Baseline Cr: 1.4 Monitor and avoid nephrotoxic agents when possible Creatinine has been normalized (4) Dyslipidemia: Not on medication (5) Cantor esophagus: No longer taking PPI DVT Prophylaxis Lovenox SQ Full Code as per discussion with pt Follows with Dr Parra for routine care He will be discharged home this afternoon Total Time Total Time Spent Total Time Spent (In Minutes): 35 minutes Discharge Plan Discharge Items Patient Disposition: Home - Self-Care Reason For Visit: DIZZINESS Discharge Diagnosis: Dizziness likely secondary to orthostasis-resolved, frequent PVCs, GERD Condition on Discharge: Good Activity: Resume your previous activity Non-emergency contact: Primary Care Provider Call non-emergency contact if: you have any medication questions and your symptoms worsen Follow-up/Referrals: Fadi Parra MD [Primary Care Provider] - (Date & Time 03/25/2022 3:00 PM Provider Fadi Parra MD [facility] ) Diet: Heart Healthy Addtl Attending Provider Instructions: Please take precautions to avoid fall No change in new medication Try to drink more fluid Please give appointment with your healthcare providers Pending Studies at Discharge: No Stand-Alone Forms: My [employer], Smoking Cessation Medications and DC Order Prescriptions: New atorvastatin 10 mg Tablet 10 mg PO QAM 30 Days Qty: 30 0RF meclizine 25 mg Tablet 25 mg PO Q6H PRN (Reason: dizziness) 15 Days Qty: 30 0RF Continued Flintstones Gummies Tablet,Chewable 1 tab PO QAM cholecalciferol (vitamin D3) [Vitamin D3] 50 mcg (2,000 unit) Tablet 4,000 unit PO DAILY Discharge Orders: Discharge Order (Routine); Ordered 03/18/22 Ordered By: Bushra Szymanski Admission Data Admit Date/Time: 03/17/22 18:15 Attending Provider: Bushra Szymanski Admit Provider: Enrike Ordaz Primary Care Provider: Fadi Parra Other Providers: Enrike Ordaz ; Hermann Andrews Other Interventions: Discharge Summary Assessment (RN) Last Done: 03/18/22 16:48
--- NOTE | 2022-03-18 21:52 | Electrocardiogram Report ---
Test Reason : Blood Pressure : / mmHG Vent. Rate : 052 BPM Atrial Rate : 052 BPM P-R Int : 162 ms QRS Dur : 108 ms QT Int : 476 ms P-R-T Axes : 043 019 040 degrees QTc Int : 442 ms Sinus bradycardia Otherwise normal ECG When compared with ECG of 17-MAR-2022 15:04, Premature ventricular complexes are no longer Present Confirmed by Monroe Soto ([id number]) on 03/18/2022 9:52:25 PM Referred By: Eriberto Dao Confirmed By:Monroe Soto
== END 2022-03-18 17:02 | disposition home or self-care (01) ==
LOC: ED 13:11 → INTOOBSV 18:15 → SUATTDRO 18:15 → 1E 18:15 → 2W 03-18 07:36
DX: Z88.8 Allergy status to other drugs, medicaments and biological substances; N18.30 Chronic kidney disease, stage 3 unspecified; I77.819 Aortic ectasia, unspecified site; R42 Dizziness and giddiness; Z87.891 Personal history of nicotine dependence; I49.3 Ventricular premature depolarization